=== PATIENT | male | born 1950 | race Caucasian/White ===

== ENCOUNTER → 2017-08-28 09:53 | Outpatient (CLI) | payer MEDICARE, BC, SELFPAY ==
--- NOTE | 2017-08-28 10:05 | XR_ITS ---
XR knee RT 4V HISTORY: ITS.REASON: RT KNEE PAIN AND STIFFNESS ORDERING PHYSICIAN: David Hubbard MD PATIENT AGE: 66 years COMPARISON: None FINDINGS: Moderate osteoarthritic changes involving the medial compartment and patellofemoral joint. No fracture or dislocation. No lytic or blastic change. There is a coarse area of calcification in the popliteal fossa. This could be related to dystrophic soft tissue calcification is somewhat more posterior than one would expect for a loose body unless it would be in a Cornelius's cyst. IMPRESSION: Moderate osteoarthritis of the medial compartment and patellofemoral joint. 2.3 cm coarse calcific density in the popliteal fossa posteriorly etiology indeterminate
== END ==
PROVIDERS: PCP Family Medicine; Visit Provider Family Medicine
DX: M25.661 Stiffness of right knee, not elsewhere classified (principal); M25.561 Pain in right knee
CPT/HCPCS: 73564

== ENCOUNTER → 2017-09-17 09:02 | Outpatient (CLI) | payer MEDICARE, BC, SELFPAY ==
--- NOTE | 2017-09-17 09:04 | MR_ITS ---
MR knee RT wo con HISTORY: Right-sided knee pain posteriorly extending into the calf with swelling ITS.REASON: RT medial meniscal tear ORDERING PHYSICIAN: Scott Han MD PATIENT AGE: 66 years Comparison: 08/28/2017 TECHNIQUE: Standard multiplanar multiecho sequences are performed without contrast. FINDINGS: The cruciate ligaments are intact. The fibers of the ACL are somewhat sparse but do appear intact and have normal orientation. The patellar tendon and quadriceps tendon and collateral ligaments have an unremarkable appearance. There is a longitudinal tear involving the anterior horn of the lateral meniscus. The posterior horn of the lateral meniscus appears intact. The medial meniscus has an abnormal appearance. The anterior horn is somewhat small and slightly displaced anteriorly and laterally. The body of the lateral meniscus is very small with increased horizontal T2 signal. The posterior horn has a somewhat truncated appearance anteriorly. Suspect that there is a complex tear involving the body and posterior horn with a flipped meniscus as there is some abnormal isointensity to the right of the inferior aspect of the posterior cruciate ligament. Increased T2 signal involves the proximal tibia posteriorly at the insertion of the posterior cruciate ligament as well as the anterior aspect of the proximal tibia in the subcortical region. Osteoarthritic changes are present involving all 3 compartments and there is a small knee joint effusion with a small Cornelius's cyst. There is an area of irregular mixed signal intensity in the popliteal fossa measuring 17 mm corresponding to the calcification noted on the plain film consistent with a loose body or synovial osteochondroma. A donor site is not identified. IMPRESSION: 1. Abnormal MRI of the right knee. Tricompartmental osteoarthritic changes are present with knee joint effusion and loose bodies/synovial osteochondroma in the popliteal fossa. 2. Longitudinal tear of the anterior horn of the lateral meniscus. 3. Complex tear involves the body of the medial meniscus with possible flipped meniscus. Prior meniscal surgery could also give this appearance. Please correlate clinically.
== END ==
PROVIDERS: PCP Family Medicine; Visit Provider Orthopaedic Surgery
DX: M17.11 Unilateral primary osteoarthritis, right knee (principal); M71.21 Synovial cyst of popliteal space [Baker], right knee; S83.241A Other tear of medial meniscus, current injury, right knee, initial encounter
CPT/HCPCS: 73721

== ENCOUNTER → 2017-11-07 06:39 | Outpatient (CLI) | payer MEDICARE, BC, SELFPAY ==
[2017-11-07 07:31] LABS: Hemoglobin A1C 7.5 % (0.0-7.0)
[2017-11-07 08:55] LABS: Alanine Aminotransferase 33 U/L (12-78); Albumin Level 3.9 gm/dL (3.4-5.0); Albumin/Globulin Ratio 1.1 (1.1-1.8); Alkaline Phosphatase 88 U/L (46-116); Anion Gap 11.3 mEq/L (5-15); Aspartate Amino Transferase 21 U/L (15-37); Bilirubin,Total 0.4 mg/dL (0.2-1.0); Blood Urea Nitrogen 10 mg/dL (7-18); Calcium 9.3 mg/dL (8.5-10.1); Carbon Dioxide 31 mmol/L (21.0-32.0); Chloride 107 mmol/L (98-107); Cholesterol 214 mg/dL (140-200); Creatinine,Serum 0.97 mg/dL (0.70-1.30); Estimated Glomerular Filt Rate 78 ml/min (>60); GFR (African American) 94 ML/MIN (>60); Globulin 3.4 gm/dl (1.3-3.2); Glucose 121 mg/dL (74-106); HDL Cholesterol 43 mg/dL (27-67); LDL Cholesterol 138 mg/dL (0-130); Potassium 4.3 mmoL/L (3.5-5.1); Sodium 145 mmol/L (136-145); Thyroid Stimulating Hormone 1.47 uIU/ml (0.358-3.740); Total Protein,Serum 7.3 gm/dL (6.4-8.2); Triglycerides 163 mg/dL (30-200); VLDL Cholesterol 33 mg/dL (0-40)
== END ==
PROVIDERS: PCP Family Medicine; Visit Provider Family Medicine
DX: E78.5 Hyperlipidemia, unspecified (principal); E03.9 Hypothyroidism, unspecified; E11.9 Type 2 diabetes mellitus without complications; I10 Essential (primary) hypertension
CPT/HCPCS: 36415; 80053; 80061; 83036; 84443

== ENCOUNTER → 2018-04-22 10:18 | Outpatient (POV) | payer MEDICARE, SELFPAY | PROVIDERS: Visit Provider Nurse Practitioner Acute Care | DX: Z00.00 Encounter for general adult medical examination without abnormal findings (principal) ==

== ENCOUNTER → 2018-04-23 13:46 | Outpatient (CLI) | payer MEDICARE, SELFPAY ==
[2018-04-23 14:14] LABS: Adenovirus F 40/41, stool Not Detected (NotDetected); Astrovirus Not Detected (NotDetected); Campylobacter Not Detected (NotDetected); Clostridium Difficile A/B, PCR Not Detected (NotDetected); Cryptosporidium Not Detected (NotDetected); Cyclospora Cayetanesis Not Detected (NotDetected); Entamoeba histolytica Not Detected (NotDetected); Enteroaggregative E coli Not Detected (NotDetected); Enteropathogenic E coli Not Detected (NotDetected); Enterotoxigenic E coli Not Detected (NotDetected); Giardia lamblia Not Detected (NotDetected); Norovirus Not Detected (NotDetected); Plesimonas Shigalloides, PCR Not Detected (NotDetected); Rotavirus A Not Detected (NotDetected); Salmonella, PCR Not Detected (NotDetected); Sapovirus Not Detected (NotDetected); Shiga-like toxin E coli Not Detected (NotDetected); Shigella Enterovasive E coli Not Detected (NotDetected); Vibrio Cholerae Not Detected (NotDetected); Vibrio, PCR Not Detected (NotDetected); Yersinia Entercolitica, PCR Not Detected (NotDetected)
== END ==
PROVIDERS: Visit Provider Nurse Practitioner Acute Care
DX: K30 Functional dyspepsia (principal); R19.7 Diarrhea, unspecified
CPT/HCPCS: 87506

== ENCOUNTER → 2018-12-06 15:42 | Outpatient (CLI) | payer MEDICARE, SELFPAY ==
[2018-12-06 16:03] LABS: Basophils % 0.7 % (0.1-2.0); Eosinophils # 0.2 K/mm3 (0.0-0.4); Eosinophils % 2.9 % (0.1-12.0); Hematocrit 40.6 % (42.0-52.0); Hemoglobin 13.4 g/dL (14.1-18.0); Lymphocytes # 1.6 K/mm3 (0.7-4.5); Lymphocytes % 28.7 % (10-50); Mean Corpuscular Hemoglobin 29.6 pg (27.0-31.2); Mean Corpuscular Volume 89.8 fl (80-94); Mean Platelet Volume 7.5 fl (7.4-10.4); Monocytes # 0.3 K/mm3 (0.1-1.0); Monocytes % 5.7 % (1.7-9.3); Neutrophils # 3.4 K/mm3 (1.8-7.8); Platelet Count 249 K/mm3 (142-424); Red Blood Count 4.52 M/mm3 (4.60-6.20); Red Cell Distribution Width 14.1 % (11.5-17.5); White Blood Count 5.4 K/mm3 (4.8-10.8)
[2018-12-06 17:40] LABS: Alanine Aminotransferase 27 U/L (12-78); Albumin Level 4.2 gm/dL (3.4-5.0); Albumin/Globulin Ratio 1.2 (1.1-1.8); Alkaline Phosphatase 74 U/L (46-116); Amylase 37 U/L (25-115); Aspartate Amino Transferase 28 U/L (15-37); Bilirubin,Total 0.5 mg/dL (0.2-1.0); Blood Urea Nitrogen 13 mg/dL (7-18); Carbon Dioxide 27 mmol/L (21.0-32.0); Chloride 102 mmol/L (98-107); Creatinine,Serum 0.85 mg/dL (0.70-1.30); Estimated Glomerular Filt Rate 90 ml/min (>60); Ferritin 26 ng/mL (8-388); GFR (African American) 109 ML/MIN (>60); Globulin 3.5 gm/dl (1.3-3.2); Glucose 87 mg/dL (74-106); Lipase 159 u/L (73-393); Sodium 141 mmol/L (136-145); Total Protein,Serum 7.7 gm/dL (6.4-8.2)
[2018-12-08 08:09] LABS: Iron 46 ug/dL (38-169); UIBC 357 ug/dL (111-343)
[2018-12-09 07:24] LABS: Iron Saturation 11 % (15-55)
== END ==
PROVIDERS: Visit Provider Internal Medicine Gastroenterology
DX: R19.7 Diarrhea, unspecified (principal); K30 Functional dyspepsia; R14.0 Abdominal distension (gaseous); R63.4 Abnormal weight loss; E74.31 Sucrase-isomaltase deficiency
CPT/HCPCS: 36415; 80053; 82150; 82728; 83540; 83550; 83690; 85025

== ENCOUNTER → 2018-12-10 09:56 | Outpatient (CLI) | payer MEDICARE, SELFPAY ==
--- NOTE | 2018-12-10 09:58 | CT_ITS ---
PROCEDURE: CT ABDOMEN PELVIS W CON CLINICAL INDICATION: DIARRHEA, WGT LOSS, BLOATING, DYSPEPSIA COMPARISON: No exams were available for comparison TECHNIQUE: IV Contrast: 75ML OPTIRAY 350 Oral Contrast 450ml Redicat Axial images obtained with sagittal and coronal reformats. All CT scans at the facility use one or more dose reduction, viz: automated exposure control, ma/kV adjustment per patient size (including targeted exams where dose is matched to indication, i.e. head), or iterative reconstruction technique. FINDINGS: There is COPD in the lung bases with pulmonary fibrotic changes. In the most superior image there is soft tissue density posterior to the left atrium which may be related to adenopathy. This is incompletely imaged and chest CT may provide further evaluation. The liver, spleen, adrenal glands, and pancreas have an unremarkable appearance. There is a large gallstone in the fundus of the gallbladder which measures 3 cm. The wall the stomach appears somewhat thickened. This could be due to nondistention or gastritis. No renal or ureteral calculi. There is a 2.4 cm left renal cyst. Prior appendectomy. No intestinal obstruction or free air. There is diverticulosis of the colon throughout from the cecum to the sigmoid colon region. There is no evidence of diverticulitis. There is mild thickening of the junction of the rectum and sigmoid colon. This could be due to nondistention. Sigmoidoscopy may confirm. The prostate is enlarged at 5.9 x 4.9 cm. There is mild thickening of the urinary bladder wall. There are postsurgical changes of lumbar spine with inter pedicular screws at L2 and L3 there are mild osteoarthritic changes of the hips with a lucency of the right femoral neck and may be due to subchondral cyst. IMPRESSION: 1. Cholelithiasis. 2. Thickening of the wall of the stomach. This is nonspecific and may be due to nondistention. Differential diagnosis would include infiltrative process such as diffuse inflammation or even neoplasm. Upper endoscopy may be of further value. 3. Thickening of the junction of the sigmoid colon and rectum which could also be due to nondistention versus focal mucosal thickening from inflammation or neoplasm. Sigmoidoscopy may be of further value in this patient with recent weight loss 4. Suspected mediastinal adenopathy. Chest CT may be of further value. 5. Pancolonic diverticulosis Dictated by: Mannie Belcher MD 12/11/2018 06:40 Electronically signed by Mannie Belcher MD in [place] 12/11/2018 06:40
== END ==
PROVIDERS: PCP Family Medicine; Visit Provider Internal Medicine Gastroenterology
DX: R19.7 Diarrhea, unspecified (principal); R63.4 Abnormal weight loss; R14.0 Abdominal distension (gaseous); K30 Functional dyspepsia; E74.31 Sucrase-isomaltase deficiency
CPT/HCPCS: 74177; Q9967

== ENCOUNTER → 2018-12-16 14:26 | Outpatient (CLI) | payer MEDICARE, SELFPAY ==
[2018-12-16 16:03] LABS: Blood Urea Nitrogen 10 mg/dL (7-18); Creatinine,Serum 0.86 mg/dL (0.70-1.30); Estimated Glomerular Filt Rate 89 ml/min (>60); GFR (African American) 108 ML/MIN (>60)
== END ==
PROVIDERS: Visit Provider Family Medicine
DX: Z01.818 Encounter for other preprocedural examination (principal)
CPT/HCPCS: 36415; 82565; 84520

== ENCOUNTER → 2018-12-18 13:41 | Outpatient (CLI) | payer MEDICARE, SELFPAY ==
--- NOTE | 2018-12-18 14:08 | CT_ITS ---
PROCEDURE: CT CHEST WO/W CON CLINCAL INDICATION: COPD,ABN CT SCAN COPD, shortness of air, mediastinal adenopathy COMPARISON: CT ABDOMEN PELVIS W CON from 12/10/2018 TECHNIQUE: IV Contrast: 75ml Optiray 350 Axial images obtained with sagittal and coronal reformats. All CT scans at the facility use one or more dose reduction, viz: automated exposure control, ma/kV adjustment per patient size (including targeted exams where dose is matched to indication, i.e. head), or iterative reconstruction technique. FINDINGS: HEART,AORTA,PULMONARY ARTERIES unenhanced images show coronary artery calcification. There is mild prominence of the ascending aorta at 4 cm. No evidence of aortic dissection or central pulmonary embolus. MEDIASTINAL AND HILAR STRUCTURES: There are multiple partially calcified mildly enlarged mediastinal lymph nodes. Calcified hilar nodes are also present. The abnormality noted on the CT abdomen represents enlarged lymph nodes partially calcified measuring 4 x 2.6 cm in the subcarinal region and right infrahilar area. LUNGS: There is hyperinflation with attenuation of the peripheral pulmonary vessels consistent with COPD. There are peripheral pulmonary fibrotic changes more extensive in the lung bases with some mild honeycombing. Scattered small subpleural nodular opacities are noted which are nonspecific. 5 mm subpleural opacity is present in the left apex. No central obstructing lesions. PLEURAL SPACES: No significant effusion. No evidence of pneumothorax. BONY STRUCTURES: Degenerative change thoracic spine LYMPH NODES: Mild mediastinal adenopathy. The nodes are partially calcified UPPER ABDOMEN: Cholelithiasis. There is a 2.9 cm stone within the gallbladder. There is high-grade stenosis involving the ostium of the celiac artery with poststenotic dilatation. The stenosis is approximately 90 percent ADDITIONAL FINDINGS: No other significant abnormalities. IMPRESSION: 1. Enlarged partially calcified mediastinal lymph nodes with calcified hilar lymph nodes and associated pulmonary fibrotic changes. Sarcoidosis would be included in the differential diagnosis. 2. Mild dilatation of the ascending aorta at 4 cm. 3. 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 Cholelithiasis Dictated by: Mannie Belcher MD 12/19/2018 05:10 Electronically signed by Mannie Belcher MD in [place] 12/19/2018 05:10
== END ==
PROVIDERS: PCP Family Medicine; Visit Provider Family Medicine
DX: R93.89 Abnormal findings on diagnostic imaging of other specified body structures (principal); J44.9 Chronic obstructive pulmonary disease, unspecified
CPT/HCPCS: 71270; 94060; 94640; 94726; 94729; Q9967

== ENCOUNTER → 2019-02-11 09:46 | Outpatient (CLI) | payer MEDICARE, SELFPAY ==
--- NOTE | 2019-02-11 09:50 | XR_ITS ---
PROCEDURE: XR RIBS LT MIN 3V W CXR1V CLINICAL INDICATION: LT RIB PAIN COMPARISON: CXR CHEST(2 VIEWS-NOT PORTABLE) from 01/20/2013 CT CHEST WO/W CON from 12/18/2018 FINDINGS: Bone density is normal. There is no pleural effusion or pneumothorax. There are multiple old healed left-sided rib fractures involving 7th, 8th, 9th, and 10th ribs. There is no acute fracture. There is a 3.1 centimeter ring type of calcification in the right upper quadrant of the abdomen. IMPRESSION: No acute rib fractures. Old healed left-sided rib fractures. Right upper quadrant calcification likely gallstone. Dictated by: Cristino James 02/11/2019 12:27 Electronically signed by Cristino James in [facility] 02/11/2019 12:27
== END ==
PROVIDERS: PCP Family Medicine; Visit Provider Family Medicine
DX: R07.81 Pleurodynia (principal)
CPT/HCPCS: 71101

== ENCOUNTER → 2019-11-08 07:06 | Outpatient (CLI) | payer MEDICARE, SELFPAY ==
[2019-11-08 10:30] LABS: Hemoglobin A1C 6.8 % (4.0-6.0)
[2019-11-08 14:07] LABS: Alanine Aminotransferase 23 U/L (12-78); Albumin Level 4.5 g/dl (3.5-5.0); Albumin/Globulin Ratio 1.5 (1.1-1.8); Alkaline Phosphatase 87 U/L (38-126); Anion Gap 11.6 mEq/L (5-15); Aspartate Amino Transferase 35 U/L (17-59); Bilirubin,Total 0.7 mg/dl (0.2-1.3); Blood Urea Nitrogen 13 mg/dl (9-20); Calcium 10.4 mg/dl (8.4-10.2); Carbon Dioxide 30 mmol/L (22.0-30.0); Chloride 107 mmol/L (98-107); Chol/HDL Ratio 2.9 (1-3.5); Cholesterol 136 mg/dl (140-200); Estimated Glomerular Filt Rate 97 ml/min (>60); GFR (African American) 117 ML/MIN (>60); Glucose 151 mg/dl (74-100); HDL Cholesterol 47 mg/dl (40-60); Potassium 4.6 mmoL/L (3.5-5.1); Sodium 144 mmol/L (136-145); Total Protein,Serum 7.5 g/dl (6.3-8.2); Triglycerides 135 mg/dl (30-150); VLDL Cholesterol 27 mg/dL (0-40)
[2019-11-08 14:18] LABS: Direct LDL Cholesterol 80.69 mg/dL (100-129)
[2019-11-08 14:25] LABS: T4 (Thyroxine) 15.1 ug/dl (5.53-11.0)
[2019-11-08 14:38] LABS: Prostate Specific Ag Screen 2.8 ng/ml (0.0-4.0); Thyroid Stimulating Hormone 0.15 uIU/mL (0.465-4.68)
== END ==
PROVIDERS: Visit Provider Family Medicine
DX: I10 Essential (primary) hypertension (principal); E78.5 Hyperlipidemia, unspecified; E03.9 Hypothyroidism, unspecified; E11.9 Type 2 diabetes mellitus without complications; Z79.84 Long term (current) use of oral hypoglycemic drugs; Z12.5 Encounter for screening for malignant neoplasm of prostate
CPT/HCPCS: 36415; 80053; 80061; 83036; 84436; 84443; G0103

== ENCOUNTER → 2020-01-08 10:55 | Outpatient (CLI) | payer MEDICARE, SELFPAY ==
--- NOTE | 2020-01-08 11:16 | MR_ITS ---
PROCEDURE: MR CERVICAL SPINE WO CON CLINICAL INDICATION: NECK PAIN WITH RT ARM RADICULOPATHY X2-3 WEEKS. COMPARISON: CR CS5 CERVICAL SPINE 4 OR 5 VIEWS from 01/10/2016 TECHNIQUE: Standard multiplanar multiecho sequences are performed without contrast. 3-D MIP and myelographic images are also rendered and reviewed FINDINGS: There is normal alignment. The craniocervical junction has an unremarkable appearance. There are hypertrophic changes at the deltoid process with some pannus formation about the odontoid process without cord impingement. C2-C3: Degenerative disc disease with mild right foraminal narrowing from uncovertebral hypertrophy. C3-C4: Degenerative disc disease with bulging disc a right paracentral disc osteophyte complex with severe right-sided facet and uncovertebral hypertrophy causing severe right foraminal narrowing. There is also right lateral recess narrowing and severe canal stenosis with impingement upon the cord with canal measuring 5 mm. There is some hypertrophy of the lamina also at this level contributing to the canal stenosis. There is moderate left-sided foraminal narrowing as well. C4-C5: Degenerative disc disease with bulging disc with moderate to severe right-sided foraminal narrowing from facet hypertrophy. Borderline canal stenosis. C5-C6: Degenerative disc disease. Bulging disc is present which is slightly eccentric toward the left. There is narrowing of the canal at 9 mm. C5 has a mottled appearance with heterogeneous T1 and T2 signal which may be degenerative in nature. There is severe bilateral foraminal narrowing from uncovertebral and facet hypertrophy. C6-C7: Degenerative disc disease with bulging disc along with ligamentum hypertrophy with bilateral foraminal narrowing right greater than left. C7-T1: Mild degenerative disc disease. Spondylosis is also present in the upper thoracic spine at T1-T2 and T3 with facet hypertrophic changes with bilateral foraminal narrowing. MRI of the T-spine with axial imaging may better evaluate. No extruded herniated disc is evident. Prominent anterior osteophytes are present at C4-C5 C6 and C7 consistent with DISH. IMPRESSION: Abnormal MRI of the cervical spine with multilevel cervical spondylosis with degenerative disc disease bulging disc and facet and uncovertebral hypertrophy resulting in canal stenosis lateral recess narrowing and foraminal narrowing. This is most severe at C3-C4 with other levels also affected. Please see above for detailed description at each level. Thoracic spondylosis also noted which may be better evaluated with thoracic spine MRI with axial imaging. DISH of the cervical spine. Dictated by: Mannie Belcher MD 01/09/2020 10:39 Mannie Belcher MD in [place] 01/09/2020 10:39
== END ==
PROVIDERS: PCP Family Medicine; Visit Provider Family Medicine
DX: M54.12 Radiculopathy, cervical region (principal)
CPT/HCPCS: 72141; 76376

== ENCOUNTER → 2020-02-16 07:47 | Outpatient (CLI) | payer MEDICARE, SELFPAY ==
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
[2020-02-16 08:25] LABS: Blood Urea Nitrogen 11 mg/dl (9-20); Estimated Glomerular Filt Rate 75 ml/min (>60); GFR (African American) 90 ML/MIN (>60)
== END ==
PROVIDERS: PCP Family Medicine; Visit Provider Specialist
DX: G40.909 Epilepsy, unspecified, not intractable, without status epilepticus (principal); R40.4 Transient alteration of awareness; R55 Syncope and collapse
CPT/HCPCS: 36415; 70553; 82565; 84520; 93270; A9576

== ENCOUNTER → 2020-03-23 14:14 | Outpatient (POV) | payer MEDICARE, SELFPAY | PROVIDERS: Visit Provider Dermatology | DX: Z00.00 Encounter for general adult medical examination without abnormal findings (principal) ==

== ENCOUNTER 2020-04-23 08:00 | Outpatient (RCR) | payer MEDICARE, SELFPAY | END 2020-04-23 08:05 | disposition home or self-care (01) | LOC: PT 08:00 | PROVIDERS: PCP Family Medicine; Visit Provider Anesthesiology Pain Medicine | DX: M50.11 Cervical disc disorder with radiculopathy, high cervical region (principal) | CPT/HCPCS: 20560; 97010; 97012; 97014; 97110; 97163; G0283 ==

== ENCOUNTER → 2020-06-01 13:18 | Outpatient (POV) | payer MEDICARE, SELFPAY ==
[2020-06-01 14:14] LABS: Basophils # 0.1 K/mm3 (0-0.2); Basophils % 0.8 % (0.1-2.0); Eosinophils # 0.2 K/mm3 (0.0-0.4); Eosinophils % 3.7 % (0.1-12.0); Hemoglobin 13.8 g/dL (14.1-18.0); Lymphocytes # 1.7 K/mm3 (0.7-4.5); Lymphocytes % 27.4 % (10-50); Mean Corpuscular HGB Conc 32.7 g/dL (31.8-35.4); Mean Corpuscular Hemoglobin 29.6 pg (27.0-31.2); Mean Corpuscular Volume 90.4 fl (80-94); Mean Platelet Volume 7.1 fl (7.4-10.4); Monocytes # 0.4 K/mm3 (0.1-1.0); Monocytes % 6.2 % (1.7-9.3); Neutrophils # 3.7 K/mm3 (1.8-7.8); Neutrophils % 61.9 % (37.0-80.0); Platelet Count 259 K/mm3 (142-424); Red Blood Count 4.65 M/mm3 (4.60-6.20); Red Cell Distribution Width 13.8 % (11.5-17.5); White Blood Count 6.1 K/mm3 (4.8-10.8)
[2020-06-01 14:42] LABS: Chloride 106 mmol/L (98-107); Potassium 3.9 mmoL/L (3.5-5.1); Sodium 143 mmol/L (136-145)
[2020-06-01 14:44] LABS: Alanine Aminotransferase 27 U/L (12-78); Aspartate Amino Transferase 35 U/L (17-59); Blood Urea Nitrogen 10 mg/dl (9-20); Estimated Glomerular Filt Rate 75 ml/min (>60); GFR (African American) 90 ML/MIN (>60)
[2020-06-01 14:45] LABS: Albumin Level 4.8 g/dl (3.5-5.0); Albumin/Globulin Ratio 1.8 (1.1-1.8); Alkaline Phosphatase 86 U/L (38-126); Anion Gap 14.9 mEq/L (5-15); Bilirubin,Total 0.5 mg/dl (0.2-1.3); Calcium 9.8 mg/dl (8.4-10.2); Carbon Dioxide 26 mmol/L (22.0-30.0); Globulin 2.7 g/dL (1.3-3.2); Glucose 134 mg/dl (74-100); Total Protein,Serum 7.5 g/dl (6.3-8.2)
[2020-06-03 14:24] LABS: Hep A Ab, IgM Negative (Negative); Hepatitis B Core Antibody IgM Negative (Negative); Hepatitis B Surface Antigen Negative (Negative)
[2020-06-04 06:17] LABS: Hepatitis C Antibody <0.1 s/co ratio (0.0-0.9)
[2020-06-07 13:40] LABS: QuantiFERON-TB Gold Plus Negative (Negative)
== END ==
PROVIDERS: Visit Provider Dermatology
DX: L40.0 Psoriasis vulgaris (principal); Z79.899 Other long term (current) drug therapy
CPT/HCPCS: 36415; 80053; 80074; 85025; 86480

== ENCOUNTER → 2020-06-24 07:22 | Outpatient (CLI) | payer MEDICARE, SELFPAY ==
[2020-06-24 08:51] LABS: Chloride 107 mmol/L (98-107); Potassium 4.2 mmoL/L (3.5-5.1); Sodium 143 mmol/L (136-145)
[2020-06-24 08:53] LABS: Alanine Aminotransferase 24 U/L (12-78); Blood Urea Nitrogen 11 mg/dl (9-20); Estimated Glomerular Filt Rate 84 ml/min (>60); GFR (African American) 102 ML/MIN (>60)
[2020-06-24 08:54] LABS: Albumin Level 4.5 g/dl (3.5-5.0); Albumin/Globulin Ratio 1.7 (1.1-1.8); Alkaline Phosphatase 76 U/L (38-126); Anion Gap 12.2 mEq/L (5-15); Aspartate Amino Transferase 33 U/L (17-59); Bilirubin,Total 0.6 mg/dl (0.2-1.3); Calcium 9.8 mg/dl (8.4-10.2); Carbon Dioxide 28 mmol/L (22.0-30.0); Chol/HDL Ratio 2.8 (1-3.5); Cholesterol 133 mg/dl (140-200); Globulin 2.7 g/dL (1.3-3.2); Glucose 116 mg/dl (74-100); HDL Cholesterol 47 mg/dl (40-60); Total Protein,Serum 7.2 g/dl (6.3-8.2); Triglycerides 88 mg/dl (30-150); VLDL Cholesterol 18 mg/dL (0-40)
[2020-06-24 09:05] LABS: Direct LDL Cholesterol 66.01 mg/dL (100-129)
[2020-06-24 09:12] LABS: T4 (Thyroxine) 13.6 ug/dl (5.53-11.0)
[2020-06-24 09:25] LABS: Thyroid Stimulating Hormone 0.45 uIU/mL (0.465-4.68)
[2020-06-24 09:26] LABS: Hemoglobin A1C 6.4 % (4.0-6.0)
== END ==
PROVIDERS: Visit Provider Family Medicine
DX: I10 Essential (primary) hypertension (principal); E78.5 Hyperlipidemia, unspecified; E03.9 Hypothyroidism, unspecified; E11.9 Type 2 diabetes mellitus without complications; G40.909 Epilepsy, unspecified, not intractable, without status epilepticus
CPT/HCPCS: 36415; 80053; 80061; 83036; 84436; 84443

== ENCOUNTER → 2020-07-27 08:56 | Outpatient (POV) | payer MEDICARE, SELFPAY | PROVIDERS: Visit Provider Dermatology | DX: Z00.00 Encounter for general adult medical examination without abnormal findings (principal) ==

== ENCOUNTER → 2020-10-12 10:06 | Outpatient (POV) | payer MEDICARE, SELFPAY | PROVIDERS: Visit Provider Dermatology | DX: Z00.00 Encounter for general adult medical examination without abnormal findings (principal) ==

== ENCOUNTER → 2020-12-02 09:12 | Outpatient (CLI) | payer MEDICARE, SELFPAY ==
--- NOTE | 2020-12-02 09:24 | CT_ITS ---
PROCEDURE: CT HIGH RESOLUTION CHEST CLINICAL HISTORY: PULMONARY FIBROSIS COMPARISON: CT CT CHEST WO/W CON from 12/18/2018 TECHNIQUE: Axial images obtained with sagittal and coronal reformats. All CT scans at the facility use one or more dose reduction, viz: automated exposure control, ma/kV adjustment per patient size (including targeted exams where dose is matched to indication, i.e. head), or iterative reconstruction technique. FINDINGS: Partially calcified lymph nodes are once again noted within the mediastinum and joão not significantly changed. Coronary artery calcifications are present. Normal heart size. COPD changes with peripheral areas interlobular septal thickening and honeycombing in the lung bases consistent with pulmonary fibrosis. The subpleural/peripheral interlobular septal thickening appears somewhat more prominent compared to the previous exam. The areas of honeycombing are not significant changed. No lobar consolidation or collapse. No suspicious pulmonary nodules apparent. There is a large gallstone present measuring 3 cm. Minimal punctate calcification noted in the head of the pancreas IMPRESSION: Mild progression of the pulmonary fibrosis with COPD changes. Calcified mediastinal and hilar lymph nodes once again noted. Dictated by: Mannie Belcher MD 12/20/2020 12:31 Mannie Belcher MD in [place] 12/20/2020 12:31
== END ==
PROVIDERS: PCP Family Medicine; Visit Provider Family Medicine
DX: J84.10 Pulmonary fibrosis, unspecified (principal)
CPT/HCPCS: 71250

== ENCOUNTER → 2020-12-25 07:45 | Outpatient (CLI) | payer MEDICARE, SELFPAY ==
[2020-12-25 09:41] LABS: Basophils # 0.1 K/mm3 (0-0.2); Basophils % 1.3 % (0.1-2.0); Eosinophils # 0.3 K/mm3 (0.0-0.4); Eosinophils % 5.2 % (0.1-12.0); Hematocrit 43.2 % (42.0-52.0); Hemoglobin 14.4 g/dL (14.1-18.0); Lymphocytes # 1.5 K/mm3 (0.7-4.5); Lymphocytes % 28.3 % (10-50); Mean Corpuscular HGB Conc 33.3 g/dL (31.8-35.4); Mean Corpuscular Hemoglobin 31.4 pg (27.0-31.2); Mean Corpuscular Volume 94.1 fl (80-94); Mean Platelet Volume 8.9 fl (7.4-10.4); Monocytes # 0.3 K/mm3 (0.1-1.0); Monocytes % 6.1 % (1.7-9.3); Neutrophils # 3.2 K/mm3 (1.8-7.8); Neutrophils % 59.1 % (37.0-80.0); Platelet Count 325 K/mm3 (142-424); Red Blood Count 4.59 M/mm3 (4.60-6.20); Red Cell Distribution Width 13.6 % (11.5-17.5); White Blood Count 5.4 K/mm3 (4.8-10.8)
[2020-12-25 10:58] LABS: Alanine Aminotransferase 17 U/L (12-78); Albumin Level 4.4 g/dl (3.5-5.0); Albumin/Globulin Ratio 1.5 (1.1-1.8); Alkaline Phosphatase 56 U/L (38-126); Anion Gap 12.1 mEq/L (5-15); Aspartate Amino Transferase 40 U/L (17-59); Bilirubin,Total 0.6 mg/dl (0.2-1.3); Blood Urea Nitrogen 11 mg/dl (9-20); Calcium 9.3 mg/dl (8.4-10.2); Carbon Dioxide 30 mmol/L (22.0-30.0); Chloride 101 mmol/L (98-107); Chol/HDL Ratio 2.3 (1-3.5); Cholesterol 117 mg/dl (140-200); Estimated Glomerular Filt Rate 96 ml/min (>60); GFR (African American) 116 ML/MIN (>60); Glucose 89 mg/dl (74-100); HDL Cholesterol 52 mg/dl (40-60); Potassium 4.1 mmoL/L (3.5-5.1); Sodium 139 mmol/L (136-145); Total Protein,Serum 7.4 g/dl (6.3-8.2); Triglycerides 68 mg/dl (30-150); VLDL Cholesterol 14 mg/dL (0-40)
[2020-12-25 11:09] LABS: Direct LDL Cholesterol 53.25 mg/dL (100-129)
[2020-12-25 11:15] LABS: T4 (Thyroxine) 10.4 ug/dl (5.53-11.0)
[2020-12-25 11:28] LABS: Thyroid Stimulating Hormone 4.46 uIU/mL (0.465-4.68)
[2020-12-25 12:37] LABS: Hemoglobin A1C 5.5 % (4.0-6.0)
== END ==
PROVIDERS: Visit Provider Family Medicine
DX: E11.9 Type 2 diabetes mellitus without complications (principal); E03.9 Hypothyroidism, unspecified; E78.5 Hyperlipidemia, unspecified
CPT/HCPCS: 36415; 80053; 80061; 83036; 84436; 84443; 85025

== ENCOUNTER → 2020-12-31 09:41 | Outpatient (CLI) | payer MEDICARE, SELFPAY ==
--- NOTE | 2020-12-31 11:00 | PC.NURSE ---
PFT and 6 Minute Walk Test completed on Pt without complications. Pt given Albuterol 0.083% via HHN, tolerated tx well.
== END ==
PROVIDERS: PCP Family Medicine; Visit Provider Internal Medicine Pulmonary Disease
DX: R06.02 Shortness of breath (principal)
CPT/HCPCS: 94060; 94618; 94726; 94729

== ENCOUNTER → 2021-02-22 12:39 | Outpatient (CLI) | payer MEDICARE, SELFPAY ==
[2021-02-22 13:45] VITALS: PULSE 73; PULSE 78
== END ==
PROVIDERS: PCP Family Medicine; Visit Provider Internal Medicine Pulmonary Disease
DX: R06.00 Dyspnea, unspecified (principal)
CPT/HCPCS: 94060; 94640; 94727; 94729

== ENCOUNTER → 2021-04-23 11:21 | Outpatient (CLI) | payer MEDICARE, SELFPAY ==
--- NOTE | 2021-04-23 11:47 | XR_ITS ---
PROCEDURE INFORMATION: Exam: XR Chest Exam date and time: 04/23/2021 11:47 AM Age: 70 years old Clinical indication: Shortness of breath TECHNIQUE: Imaging protocol: XR of the chest. Views: 1 view. COMPARISON: CT HIGH RESOLUTION CHEST 12/02/2020 9:26 AM FINDINGS: Lungs: Moderate reticular and hazy opacities in both lungs, compatible with chronic interstitial lung disease/fibrosis noted on CT 12/02/2020. No new focal consolidation. Pleural spaces: Unremarkable. No pleural effusion. No pneumothorax. Heart/Mediastinum: Heart size likely normal given AP projection. Bones/joints: Osteoarthritic changes. IMPRESSION: No definite active pulmonary process. Chronic appearing findings as above.
[2021-04-23 14:27] LABS: Basophils # 0.1 K/mm3 (0-0.2); Eosinophils # 0.2 K/mm3 (0.0-0.4); Eosinophils % 3.2 % (0.1-12.0); Hematocrit 41.2 % (42.0-52.0); Hemoglobin 13.6 g/dL (14.1-18.0); Lymphocytes # 1.2 K/mm3 (0.7-4.5); Lymphocytes % 17.7 % (10-50); Mean Corpuscular Hemoglobin 31.2 pg (27.0-31.2); Mean Corpuscular Volume 94.5 fl (80-94); Monocytes # 0.5 K/mm3 (0.1-1.0); Monocytes % 7.7 % (1.7-9.3); Neutrophils # 4.8 K/mm3 (1.8-7.8); Neutrophils % 70.4 % (37.0-80.0); Platelet Count 332 K/mm3 (142-424); Red Blood Count 4.36 M/mm3 (4.60-6.20); Red Cell Distribution Width 13.3 % (11.5-17.5); White Blood Count 6.8 K/mm3 (4.8-10.8)
== END ==
PROVIDERS: PCP Family Medicine; Visit Provider Family Medicine
DX: Z20.822 Contact with and (suspected) exposure to COVID-19 (principal)
CPT/HCPCS: 71045; 85025; C9803; U0003; U0005

== ENCOUNTER → 2021-04-25 08:03 | Outpatient (CLI) | payer MEDICARE, SELFPAY ==
--- NOTE | 2021-04-25 08:27 | FL_ITS ---
FINAL REPORT CLINICAL HISTORY: .PT STATES HE HAD HIS ESOPHAGUS STRETCHED JAN 2021, PT STATES HE FEELS LIKE FOOD STILL GETS STUCK. FLUORO TIME 51 SECONDS FINDINGS: ESOPHAGRAM HISTORY: Dysphagia. Previous esophageal stretching PROCEDURE: The patient ingested barium. Effervescent crystals were also administered. Spot and overhead films were obtained. FINDINGS: The esophagus is normal. There is no hiatal hernia. There is Rachid gastroesophageal reflux to the level of the upper thoracic esophagus. Peristalsis is normal. A 13 mm barium tablet was administered which passed throughout the esophagus. IMPRESSION: Marked gastroesophageal reflux. Reviewed, Interpreted and Dictated by Brian Melgoza III, MD Transcribed by MARTA Powell Authenticated by Brian Melgoza III, MD on 04/25/2021 12:02:15 PM [facility]
== END ==
PROVIDERS: PCP Family Medicine; Visit Provider Internal Medicine
DX: K21.9 Gastro-esophageal reflux disease without esophagitis (principal)
CPT/HCPCS: 74220

== ENCOUNTER → 2021-06-21 07:06 | Outpatient (CLI) | payer MEDICARE, SELFPAY ==
--- NOTE | 2021-06-21 07:09 | CT_ITS ---
FINAL REPORT TECHNIQUE: Thin section axial CT images of the facial bones and sinuses were obtained without contrast. Coronal reformatted images were also obtained. This study was performed with techniques to keep radiation doses as low as reasonably achievable, (ALARA). Individualized dose reduction techniques using automated exposure control or adjustment of mA and/or kV according to the patient's size were employed. CLINICAL HISTORY: hx sinusitis, thick mucous FINDINGS: CT SINUSES There is moderate mucosal thickening in the maxillary sinuses, the ethmoid air cells, in the sphenoid sinuses. There are small fluid levels in both maxillary sinuses which is consistent with acute sinusitis. Soft tissue obstructs the bilateral maxillary sinus ostia and infundibula. The left inferior turbinate is very small which may be due to postoperative change. The frontal sinuses are hypoplastic. There are postoperative changes in the roof of the mouth/maxilla. The nasal septum is in the midline. No fracture or acute bony abnormality is identified. IMPRESSION: Sinusitis as described. Soft tissue obstructs the bilateral maxillary sinus ostia and infundibula. Reviewed, Interpreted and Dictated by Brian Melgoza III, MD Transcribed by Jacqueline Anaya Authenticated by Brian Melgoza III, MD on 06/21/2021 08:42:23 AM [facility]
== END ==
PROVIDERS: PCP Family Medicine; Visit Provider Otolaryngology
DX: J32.9 Chronic sinusitis, unspecified (principal); J34.89 Other specified disorders of nose and nasal sinuses
CPT/HCPCS: 70486

== ENCOUNTER → 2021-08-17 06:32 | Outpatient (CLI) | payer MEDICARE, SELFPAY ==
[2021-08-17 09:12] LABS: Hemoglobin A1C 5.7 % (4.0-6.0)
[2021-08-17 09:34] LABS: Alanine Aminotransferase 18 U/L (12-78); Albumin Level 4.4 g/dl (3.5-5.0); Albumin/Globulin Ratio 1.3 (1.1-1.8); Alkaline Phosphatase 73 U/L (38-126); Anion Gap 12.4 mEq/L (5-15); Aspartate Amino Transferase 33 U/L (17-59); Bilirubin,Total 0.5 mg/dl (0.2-1.3); Blood Urea Nitrogen 7 mg/dl (9-20); Calcium 10.1 mg/dl (8.4-10.2); Carbon Dioxide 31 mmol/L (22.0-30.0); Chloride 101 mmol/L (98-107); Chol/HDL Ratio 2.4 (1-3.5); Cholesterol 120 mg/dl (140-200); Creatine Kinase 167 U/L (55-170); Estimated Glomerular Filt Rate 84 ml/min (>60); GFR (African American) 102 ML/MIN (>60); Globulin 3.5 g/dL (1.3-3.2); Glucose 109 mg/dl (74-100); HDL Cholesterol 49 mg/dl (40-60); Potassium 4.4 mmoL/L (3.5-5.1); Sodium 140 mmol/L (136-145); Total Protein,Serum 7.9 g/dl (6.3-8.2); Triglycerides 92 mg/dl (30-150); VLDL Cholesterol 18 mg/dL (0-40)
[2021-08-17 09:45] LABS: C-Reactive Protein 0.5 mg/L (0-4); Direct LDL Cholesterol 50.49 mg/dL (100-129)
[2021-08-17 11:04] LABS: Thyroid Stimulating Hormone 1.59 uIU/mL (0.465-4.68)
== END ==
PROVIDERS: PCP Family Medicine; Visit Provider Family Medicine
DX: E03.9 Hypothyroidism, unspecified (principal); E11.9 Type 2 diabetes mellitus without complications; I10 Essential (primary) hypertension; E78.5 Hyperlipidemia, unspecified; Z12.5 Encounter for screening for malignant neoplasm of prostate; Z79.84 Long term (current) use of oral hypoglycemic drugs
CPT/HCPCS: 36415; 80053; 80061; 82550; 83036; 84443; 86140; G0103

== ENCOUNTER → 2021-08-31 08:00 | Outpatient (CLI) | payer MEDICARE, SELFPAY ==
--- NOTE | 2021-08-31 08:04 | XR_ITS ---
FINAL REPORT CLINICAL HISTORY: knee pain FINDINGS: RIGHT KNEE Four weight-bearing views of the right knee were obtained. There is no acute fracture or dislocation. There is marked medial compartment joint space narrowing. There is subchondral sclerosis. Soft tissues are unremarkable. IMPRESSION: Subchondral sclerosis. Medial compartment joint space narrowing. Reviewed, Interpreted and Dictated by Juan Alberto Foster MD Transcribed by Jacqueline Anaya Authenticated and [facility]
--- NOTE | 2021-08-31 08:04 | XR_ITS ---
FINAL REPORT CLINICAL HISTORY: knee pain FINDINGS: LEFT KNEE Four weight-bearing views of the left knee were obtained. There is no acute fracture or dislocation. There is moderate medial compartment joint space narrowing. There is subchondral sclerosis. There are osteophytes along the underside of the patella. Soft tissues are unremarkable. IMPRESSION: Subchondral sclerosis. Medial compartment joint space narrowing. Reviewed, Interpreted and Dictated by Juan Alberto Foster MD Transcribed by Jacqueline Anaya Authenticated and [facility]
== END ==
PROVIDERS: PCP Family Medicine; Visit Provider Orthopaedic Surgery
DX: M25.561 Pain in right knee (principal); M25.562 Pain in left knee
CPT/HCPCS: 73564

== ENCOUNTER → 2021-09-17 08:03 | Outpatient (CLI) | payer MEDICARE, SELFPAY ==
[2021-09-17 08:13] LABS: MANUAL DIFFERENTIAL MANUAL DIFFERENTIAL (MANUAL DIFF)
--- NOTE | 2021-09-17 08:25 | ECG_ITS ---
APPROVED REPORT Exam: Resting ECG HR:59 bpm ECG Measurements Heart Rate 59 AXES RI 269 P 57 QRSd 122 QRS 26 QT 412 T 67 QTc 410 Conclusion SINUS BRADYCARDIA WITH FIRST DEGREE AV BLOCK POSSIBLE RIGHT VENTRICULAR CONDUCTION DELAY [RSR (QR) IN V1/V2] ABNORMAL ECG UNCONFIRMED REPORT Electronically signed by : Eugenio Aguirre MD 09/18/2021 08:02:59
[2021-09-17 11:03] LABS: Basophils % 0.6 % (0.1-2.0); Eosinophils # 0.2 K/mm3 (0.0-0.4); Eosinophils % 3.3 % (0.1-12.0); Hematocrit 39.1 % (42.0-52.0); Hemoglobin 13.5 g/dL (14.1-18.0); Lymphocytes # 1.5 K/mm3 (0.7-4.5); Lymphocytes % 22.4 % (10-50); Mean Corpuscular HGB Conc 34.5 g/dL (31.8-35.4); Mean Corpuscular Hemoglobin 30.8 pg (27.0-31.2); Mean Corpuscular Volume 89.3 fl (80-94); Mean Platelet Volume 7.6 fl (7.4-10.4); Monocytes # 0.5 K/mm3 (0.1-1.0); Monocytes % 7.9 % (1.7-9.3); Neutrophils # 4.3 K/mm3 (1.8-7.8); Neutrophils % 65.8 % (37.0-80.0); Platelet Count 307 K/mm3 (142-424); Red Blood Count 4.38 M/mm3 (4.60-6.20); Red Cell Distribution Width 13.2 % (11.5-17.5); White Blood Count 6.5 K/mm3 (4.8-10.8)
[2021-09-17 11:20] LABS: Alanine Aminotransferase 24 U/L (12-78); Albumin Level 4.3 g/dl (3.5-5.0); Albumin/Globulin Ratio 1.3 (1.1-1.8); Alkaline Phosphatase 73 U/L (38-126); Anion Gap 10.4 mEq/L (5-15); Aspartate Amino Transferase 45 U/L (17-59); Bilirubin,Total 0.4 mg/dl (0.2-1.3); Blood Urea Nitrogen 11 mg/dl (9-20); Calcium 9.8 mg/dl (8.4-10.2); Carbon Dioxide 31 mmol/L (22.0-30.0); Chloride 100 mmol/L (98-107); Estimated Glomerular Filt Rate 84 ml/min (>60); GFR (African American) 102 ML/MIN (>60); Globulin 3.2 g/dL (1.3-3.2); Glucose 81 mg/dl (74-100); Potassium 4.4 mmoL/L (3.5-5.1); Sodium 137 mmol/L (136-145); Total Protein,Serum 7.5 g/dl (6.3-8.2)
[2021-09-17 11:50] LABS: Eosinophils % 6 % (0-3); Lymphocytes % 31 % (10-50); Monocytes % 7 % (2-9); Neutrophils % 55 % (42-76); Platelet Estimate Normal; RBC Morphology Normal; Total Cells Counted 100
== END ==
PROVIDERS: PCP Family Medicine; Visit Provider Otolaryngology
DX: J32.0 Chronic maxillary sinusitis (principal); J32.2 Chronic ethmoidal sinusitis; Z01.812 Encounter for preprocedural laboratory examination; Z20.822 Contact with and (suspected) exposure to COVID-19
CPT/HCPCS: 36415; 80053; 85007; 85014; 85018; 85048; 85049; 93005; C9803; U0003; U0005

== ENCOUNTER 2021-09-20 09:07 | Day surgery (SDC) | payer MEDICARE, SELFPAY ==
[2021-09-16 09:52] VITALS: BMI 27.8
[2021-09-20] VITALS (11 sets, daily range): BP systolic 117–172; BP diastolic 52–91; PULSE 57–89; RESP 10–18; TEMP 36.1–43; O2SAT 95–98
[2021-09-20 09:51] LABS: POC Glucose,Bedside 92 (70-110)
--- NOTE | 2021-09-20 12:28 | HMH.ANESCL ---
[facility] Anesthesia Checklist - Patient Identification Patient Identification: Arm Band - Structural Data Admitted From: Home Planned Operative Procedure/s: FESS Consent for Planned Operative Procedure(s) Verified: Yes - NPO Status Verified Time NPO: 00:00 - Additional verifications Anesthesia Reactions: Yes (ponv, drowsiness) Hx Blood Transfusions: No Blood Transfusion Reaction: No - Airway Assessment C-Spine Mobility Assessed: Yes TMJ Mobility Assessed: Yes Dentition: Partials (Implants.) - Neurological Assessment Level of Consciousness: Awake Hx Seizures: Yes (2 years ago. On Keppra. Last dose yesterday) Numbness or tingling in extremities: No - Anesthesia Plan Anesthesia Risk discussed: Yes Anesthesia Plan: Verified ASA Class: III Anesthesia Type: General [facility] History I have reviewed the patient's past medical history: Yes Medical History: Reports:: Anxiety, Chronic Obstructive Pulmonary Disease (COPD), Depression, Diabetes Mellitus Type 1, Diabetes Mellitus Type 2, Hyperlipidemia, Hypertension, Lung Disease, Migraine, Seizures Denies:: Cancer, MRSA *Have you ever received a pneumonia vaccine?: No *Have you received a flu vaccine this season?: No Other Medical History: Reports: Arthritis, Hypothyroidism, Sinus Problems. Denies: Blood Transfusion Reaction Anesthesia experience/problems:: PONV Laterality Cases: Bilateral: Arthroscopy Knee, Arthroscopy Shoulder Other Surgeries: Yes: Appendectomy, Pacemaker, Other (back sx) Amputation: No Fractures: No - *Social History Last grade of school completed: Advanced degree Smoking Status: Never smoker Alcohol Intake: never Alcohol Intake Frequency:: other Substance Use Type: denies use *Occupational Status:: retired Housing: house Household Members: spouse *Travel in the last 8 weeks: None - Psychiatric History Pschychiatric History:: Reports:: Anxiety, Depression Family Hx:: Cancer, Diabetes
--- NOTE | 2021-09-20 14:21 | HMH.OPNOTE ---
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 Using a 0 degree sinus endoscope the right middle meatus is visualized and the middle turbinate medialized. Uncinectomy was then performed with a pediatric backbiter and microdebrider clearing the nasofrontal tract and infundibulum. The natural ostium to the maxillary sinus was then enlarged and cleared of obstructing polyp disease and connected to the posterior accessory ostium until the maxillary sinus was well aerated. Complete ethmoidectomy was performed working through the ethmoid bulla to clear disease polypoid mucosa in the anterior and posterior ethmoid while sparing normal mucosa at the margins. Resorbable packing was then placed in the right middle meatus. Attention was then drawn to the left side. In a similar fashion the middle turbinate was medialized, uncinectomy performed, nasofrontal tract cleared, infundibulum opened, and the natural ostium to the maxillary sinus was enlarged and cleared of obstructing polyp disease and connected to an accessory ostium posteriorly. Again, anterior and posterior ethmoidectomy was performed working to the ethmoid bulla to clear disease polypoid mucosa in the anterior and posterior ethmoid was very normal mucosa at the margins. Resorbable packing was again placed in the left middle meatus and the procedure concluded. All counts correct. Blood loss less than 25 mL. Patient was sent to recovery in stable condition. Condition: stable Disposition: PACU Complications:: none
--- NOTE | 2021-09-20 14:26 | P.PN_ITS ---
[facility] Anesthesia Record Part I Intake, IV Amount: 900 Estimated blood loss (mL): 5 Urine output (mL): 0 Blood Pressure: 128/75 SaO2: 95 Pulse Rate: 87 Respiratory Rate: 10 Temperature: 97.2 F Patient is:: Drowsy, Oral/Nasal airway Stable to PACU at:: 14:23
--- NOTE | 2021-09-20 14:58 | SUR.PHASEI ---
1458- detailed report called to maciel mosher in post op, 1459- pt left in stable condition with maciel mosher in post op.
--- NOTE | 2021-09-21 09:37 | HMH.ANESII ---
[facility] Anesthesia Record Part II Discharge Time: 14:53 Destination: Surgical Day Care (OP Surgery) PACU nurse assessment reviewed?: Yes Patient Condition:: Good Anesthesia Complications:: None Swallowing reflex intact?: Yes Cyanosis?: No Blood Pressure: 121/54 Pulse Rate: 79 Temperature: 97 F Mental Status: Alert & Oriented Pain level:: 0 Nausea and/or vomitting:: None Intake, IV Amount: 0
[2021-09-21 09:38] VITALS: BP 121/54; PULSE 79; TEMP 36.1
== END 2021-09-20 15:36 | disposition home or self-care (01) ==
LOC: OR 09:08
PROVIDERS: PCP Family Medicine; Visit Provider Otolaryngology
DX: J32.9 Chronic sinusitis, unspecified (principal); E11.9 Type 2 diabetes mellitus without complications; J44.9 Chronic obstructive pulmonary disease, unspecified; I10 Essential (primary) hypertension; Z79.899 Other long term (current) drug therapy
CPT/HCPCS: 31255; 31267; 82962; 88305; 96374; J2405

== ENCOUNTER → 2022-02-16 11:28 | Outpatient (CLI) | payer MEDICARE, SELFPAY ==
[2022-02-16 12:01] LABS: Influenza A, PCR Not Detected (NotDetected); Influenza B, PCR Not Detected (NotDetected)
[2022-02-16 12:24] LABS: Coronavirus 19, PCR Detected (NotDetected)
== END ==
PROVIDERS: PCP Family Medicine; Visit Provider Physician Assistant
DX: U07.1 COVID-19 (principal)
CPT/HCPCS: C9803; U0003; U0005

== ENCOUNTER → 2022-03-17 07:59 | Outpatient (CLI) | payer MEDICARE, SELFPAY ==
[2022-03-20 07:19] LABS: QuantiFERON-TB Gold Plus Negative (Negative)
== END ==
PROVIDERS: PCP Family Medicine; Visit Provider Dermatology
DX: L40.8 Other psoriasis (principal)
CPT/HCPCS: 36415; 86480

== ENCOUNTER → 2022-05-19 08:41 | Outpatient (CLI) | payer MEDICARE, SELFPAY ==
[2022-05-19 10:01] LABS: Hemoglobin A1C 5.7 % (4.0-6.0)
[2022-05-19 10:07] LABS: Alanine Aminotransferase 19 U/L (12-78); Albumin Level 4.4 g/dl (3.5-5.0); Albumin/Globulin Ratio 1.5 (1.1-1.8); Alkaline Phosphatase 69 U/L (38-126); Anion Gap 11.7 mEq/L (5-15); Aspartate Amino Transferase 29 U/L (17-59); Bilirubin,Total 0.5 mg/dl (0.2-1.3); Blood Urea Nitrogen 13 mg/dl (9-20); Calcium 9.3 mg/dl (8.4-10.2); Carbon Dioxide 30 mmol/L (22.0-30.0); Chloride 101 mmol/L (98-107); Cholesterol 132 mg/dl (140-200); Estimated Glomerular Filt Rate 74 ml/min (>60); GFR (African American) 90 ML/MIN (>60); Globulin 2.9 g/dL (1.3-3.2); Glucose 99 mg/dl (74-100); HDL Cholesterol 44 mg/dl (40-60); Potassium 3.7 mmoL/L (3.5-5.1); Sodium 139 mmol/L (136-145); Total Protein,Serum 7.3 g/dl (6.3-8.2); Triglycerides 114 mg/dl (30-150); VLDL Cholesterol 23 mg/dL (0-40)
[2022-05-19 10:18] LABS: Direct LDL Cholesterol 69.75 mg/dL (100-129)
[2022-05-19 10:37] LABS: Thyroid Stimulating Hormone 3.92 uIU/mL (0.465-4.68)
== END ==
PROVIDERS: PCP Family Medicine; Visit Provider Family Medicine
DX: E11.9 Type 2 diabetes mellitus without complications (principal); E03.9 Hypothyroidism, unspecified; E78.5 Hyperlipidemia, unspecified; Z79.84 Long term (current) use of oral hypoglycemic drugs
CPT/HCPCS: 36415; 80053; 80061; 83036; 84443

== ENCOUNTER → 2022-08-21 09:31 | Outpatient (CLI) | payer MEDICARE, SELFPAY ==
[2022-08-21 10:11] LABS: Basophils % 0.6 % (0.1-2.0); Eosinophils # 0.3 K/mm3 (0.0-0.4); Eosinophils % 3.8 % (0.1-12.0); Hematocrit 42.4 % (42.0-52.0); Hemoglobin 14.4 g/dL (14.1-18.0); Lymphocytes # 1.1 K/mm3 (0.7-4.5); Lymphocytes % 16.8 % (10-50); Mean Corpuscular HGB Conc 33.9 g/dL (31.8-35.4); Mean Corpuscular Hemoglobin 30.3 pg (27.0-31.2); Mean Corpuscular Volume 89.5 fl (80-94); Mean Platelet Volume 7.2 fl (7.4-10.4); Monocytes # 0.4 K/mm3 (0.1-1.0); Monocytes % 6.2 % (1.7-9.3); Neutrophils # 4.9 K/mm3 (1.8-7.8); Neutrophils % 72.7 % (37.0-80.0); Platelet Count 238 K/mm3 (142-424); Red Blood Count 4.74 M/mm3 (4.60-6.20); Red Cell Distribution Width 13.7 % (11.5-17.5); White Blood Count 6.8 K/mm3 (4.8-10.8)
[2022-08-21 10:35] LABS: Iron 91 ug/dL (49-181)
[2022-08-21 10:44] LABS: Total Iron Binding Capacity 403 ug/dL (261-462)
[2022-08-21 11:12] LABS: Ferritin 45.9 ng/ml (17.9-464)
[2022-08-21 11:43] LABS: Vitamin B12 736 pg/mL (239-931)
[2022-08-21 12:03] LABS: Folate > 20.00 ng/mL
== END ==
PROVIDERS: PCP Family Medicine; Visit Provider Nurse Practitioner Family
DX: D64.9 Anemia, unspecified (principal); R41.3 Other amnesia; R53.83 Other fatigue; R68.89 Other general symptoms and signs; M25.561 Pain in right knee; M25.562 Pain in left knee
CPT/HCPCS: 82607; 82728; 82746; 83540; 83550; 85025

== ENCOUNTER → 2022-12-15 08:14 | Outpatient (CLI) | payer MEDICARE, SELFPAY ==
[2022-12-15 09:47] LABS: Chloride 108 mmol/L (98-107); Sodium 142 mmol/L (136-145)
[2022-12-15 09:48] LABS: Potassium 3.6 mmoL/L (3.5-5.1)
[2022-12-15 09:50] LABS: Alanine Aminotransferase 22 U/L (12-78); Albumin Level 4.1 g/dl (3.5-5.0); Albumin/Globulin Ratio 1.4 (1.1-1.8); Alkaline Phosphatase 79 U/L (38-126); Anion Gap 9.6 mEq/L (5-15); Aspartate Amino Transferase 30 U/L (17-59); Bilirubin,Total 0.6 mg/dl (0.2-1.3); Blood Urea Nitrogen 9 mg/dl (9-20); Carbon Dioxide 28 mmol/L (22.0-30.0); Cholesterol 146 mg/dl (140-200); Estimated Glomerular Filt Rate 111 ml/min (>60); GFR (African American) 135 ML/MIN (>60); Globulin 2.9 g/dL (1.3-3.2); Triglycerides 79 mg/dl (30-150); VLDL Cholesterol 16 mg/dL (0-40)
[2022-12-15 09:51] LABS: Calcium 9.1 mg/dl (8.4-10.2); Chol/HDL Ratio 2.8 (1-3.5); Glucose 92 mg/dl (74-100); HDL Cholesterol 52 mg/dl (40-60)
[2022-12-15 12:04] LABS: Hemoglobin A1C 5.5 % (4.0-6.0)
== END ==
PROVIDERS: PCP Family Medicine; Visit Provider Family Medicine
DX: E11.9 Type 2 diabetes mellitus without complications (principal); E78.5 Hyperlipidemia, unspecified; I10 Essential (primary) hypertension; Z79.84 Long term (current) use of oral hypoglycemic drugs
CPT/HCPCS: 36415; 80053; 80061; 83036

== ENCOUNTER → 2022-12-23 08:20 | Outpatient (CLI) | payer MEDICARE, SELFPAY | PROVIDERS: PCP Family Medicine; Visit Provider Dermatology | DX: L40.0 Psoriasis vulgaris (principal) ==

== ENCOUNTER → 2022-12-25 09:51 | Outpatient (CLI) | payer MEDICARE, SELFPAY ==
[2022-12-25 10:17] LABS: Basophils % 0.4 % (0.1-2.0); Eosinophils # 0.2 K/mm3 (0.0-0.4); Eosinophils % 2.7 % (0.1-12.0); Hematocrit 43.2 % (42.0-52.0); Lymphocytes # 1.2 K/mm3 (0.7-4.5); Lymphocytes % 15.8 % (10-50); Mean Corpuscular HGB Conc 34.7 g/dL (31.8-35.4); Mean Corpuscular Hemoglobin 32.6 pg (27.0-31.2); Mean Corpuscular Volume 93.8 fl (80-94); Mean Platelet Volume 6.4 fl (7.4-10.4); Monocytes # 0.4 K/mm3 (0.1-1.0); Monocytes % 5.9 % (1.7-9.3); Neutrophils # 5.6 K/mm3 (1.8-7.8); Neutrophils % 75.2 % (37.0-80.0); Platelet Count 177 K/mm3 (142-424); Red Blood Count 4.61 M/mm3 (4.60-6.20); Red Cell Distribution Width 13.6 % (11.5-17.5); White Blood Count 7.4 K/mm3 (4.8-10.8)
[2022-12-28 11:12] LABS: QuantiFERON-TB Gold Plus Negative (Negative)
== END ==
PROVIDERS: PCP Family Medicine; Visit Provider Dermatology
DX: L40.0 Psoriasis vulgaris (principal); Z79.899 Other long term (current) drug therapy
CPT/HCPCS: 36415; 85025; 86480

== ENCOUNTER 2023-03-28 09:14 | Outpatient (CLI) | payer MEDICARE, SELFPAY | END 2023-03-28 23:59 | PROVIDERS: PCP Family Medicine; Visit Provider Nurse Practitioner Family | DX: D64.9 Anemia, unspecified (principal); E83.10 Disorder of iron metabolism, unspecified | CPT/HCPCS: 36415; 82728 ==

== ENCOUNTER 2023-05-02 10:36 | Outpatient (CLI) | payer MEDICARE, SELFPAY ==
--- NOTE | 2023-05-02 10:37 | FL_ITS ---
FINAL REPORT CLINICAL HISTORY: .modified barium swallow to assess swallowing 2.41 fluoro time 203.70 dap FINDINGS: MODIFIED BARIUM SWALLOW History: Dysphagia. FINDINGS: Fluoroscopy was provided for the speech pathologist to evaluate the swallowing mechanism. The patient was given several different consistencies of barium while the swallow was visualized fluoroscopically. The report of the speech pathologist should be consulted prior to making dietary decisions. Fluoro time: 2 minutes 41 seconds DAP: 203.70 uGy.m2 IMPRESSION: Modified barium swallow under fluoroscopic guidance. Please see the report of the speech pathologist for more detail. Films reviewed , interpreted and dictated by Dr. Melgoza. Transcribed by Manuel Santillan PA-C. Reviewed, Interpreted and Dictated by Brian Melgoza III, MD Transcribed by MARTA White Authenticated and . [facility]
[2023-05-02] MEDS: BARIUM SULFATE(LIQUID E-Z-PAQUE);355ML BOTTLE 355 ML PO (11:26)
--- NOTE | 2023-05-02 14:45 | HMH.SLMBS2 ---
Speech & Language Evaluation Speech/Language Mod Barium Swallow Start: 05/02/23 14:07 Freq: once Status: Complete Protocol: Document 05/02/23 14:08 GERDAMICHELLE (Rec: 05/02/23 14:45 [facility] [id number]) General Information General Current Food Consistancy Regular,Thin Liquids Dentition Upper & Lower Dentures Oxygen Status Room Air Patient Orientation Person,Place,Time,Situation Ability to Follow Directions Excellent Communication Ability No Impairment MBS Recommendations Diet Dietary Recommendations Regular,Mechanical Soft,Ground Meats,Chopped Meats,Thin Liquids Comment Provided multiple options for diet & gave education on pros/ cons Treatment/Strategies Treatment Recommendation Compens. Strategy Educat. Strategy/Precaution Recommend Sitting Upright (90 deg),Chin Tuck,Double Swallow,No Straw, Small Bites and Sips,Alternate Liquids/Solids Mod Barium Swallow Impressions Summary and Impressions Oral Phase Impression Moderate Impairment Oral Phase Summary Moderate impairment of the oral preparatory and oral transit phases of the swallow 2' observed fatigue following consecutive bites of solid bolus trials. Pt presents with decreased lingual movement, scattered loss with premature spillage, oral residuals, and multiple swallows following 2- 3 bites of bolus. Pt states he is a slow eater and frequently the last one to finish when he and his family go to restaurants. [employer] discussed diet recommendation options and stated mechanical soft foods are easier to manipulate, especially with extra sauces and gravys making this a safer diet route compared to regular solids. Pt expressed understanding. Pharyngeal Phase Impression Severe Impairment Pharyngeal Phase Summary Moderate to severe impairment of the pharyngeal phase of the swallow. Mr. Goldstein presents with A/P spills, premature spillage, limited BOT retraction, wilmer residuals in the vallecular space, noted penetration and aspiration of liquids, decreased hyolaryngeal excursion and laryngeal elevation of the swallow. Pt reports history of GERD, but no retrodgrade flow of bolus was observed throughout the MBSS. Pt was able to tolerate smaller presentations of bolus when compared to larger adminstrations. He was observed to silently aspiration wilmer residuals of thin liquids following consecutive large sips of thin liquids following presentation of barium tablet 2' poor epiglottic coverage. Pt also exhibited wilmer penetration and trace aspiration of thin liquids when presented with a straw. This was independently cleared with throat clear and a cough . Pt was observed to have fatigue following mastication of multiple solid bolus trials which resulted in decreased BOT retraction and PPW movement causing wilmer residuals throughout the pharynx. [employer] discussed these observations at the end of the instrumental assessment and discussed multiple diet options as well as the pros/ cons and safety risks. It is recommended that Mr. Goldstein be placed on, the safest recommendation, of mechanical soft solids with thin liquids with no straws and small sips with meds crushed in applesauce as allowed or cut in half with applesauce, as well as a puree/pudding wash with his meals or on a regular /thin diet attempting to avoid more fibrous, dry meats and additional sauces/gravys ensuring small bites and sips, as well as the implementation of a puree/pudding wash between every 2-3 bites. He expressed understanding. Speech/Language MBS Assessment/Goals/Plan Assessment Date of Evaluation: 05/02/23 Evaluation Type Initial Certification Assessment/Problems dysphagia per MD order Does Patient Qualify for Service No Qualify/Failure Comment Based on clinical observations made during MBSS, skilled speech therapy services are not warranted at this time, if pt follows recommended diet and implements compensatory strategies discussed and reviewed. Recommendations PHYSICIAN CERTIFICATION: The specified therapy services are required, authorized, and reviewed every 30 days. Diet Recommendations regular or mechanical soft Liquid Type Recommendations Normal/Thin SL Swallow Guidelines Alt bite w/sip thru meal, Standard Aspiration Prec., Crush meds as allowed*,Eat at slow rate,Reflux precautions Crush Meds Crush all meds,Small pills w/ applesauce,Small OK/Crush large pill Dysphagia Swallow Precautions/Strategies Sitting Upright (90 deg),Chin Tuck,Double Swallow,No Straw, Small Bites and Sips,Alternate Liquids/Solids Place Food on Either side of Mouth Plan Pt/Guardian verbally ack understanding Yes of dx/prognosis/goals G -code Required No Education Instructions provided Discussed MBSS results, diet recommendation options, aspiration precautions and compensatory strategies with pt who expressed understanding . Pt/Caregiver able to recall information Able to recall/restate Reinforcement needed No Mod Barium Swallow Setup Exam Setup Radiologist Brian Melgoza Level of Consciousness Awake,Alert,Appropriate, Follows Commands Mod Barium Swallow-Lat View Textures Lateral View Food Presentation Thin Liquid via Cup,Thin Liquid via Straw,Pureed Food- Thin,Mech. Soft Food- Regular, Barium Tablet,Regular Food, Pudding Comment puree: applesauce MS: nutrigrain bar regular: grahamn cracker Oral Phase Labial Closure Minimal Impairment Bolus Formation Pooling L/R Moderate Impairment Bolus Formation under Tongue Mild Impairment Bolus Formation Scattered Loss Moderate Impairment Mastication Rotary Chew Moderate Impairment Mastication Munching Moderate Impairment Mastication Lateralization Mild Impairment Lingual Movement Moderate Impairment Residue Clearing Moderate Impairment Pharyngeal Phase A/P Lingual Propulsion Spills Moderate Impairment Swallow Response Delay Mild Impairment Base of Tongue Moderate Impairment Epiglottic Coverage Moderate Impairment Laryngeal Elevation Moderate Impairment Vallecular Retention Clearing Severe Impairment Pharyn. Wall Residue Clearing Moderate Impairment Piriform Sinus Retention Mild Impairment Aspiration? Yes Degree of Aspiration Medium When aspirated During the swallow Consistencies Aspirated Aspiration during swallow with thin liquids and penetration trace residuals of MS and regular solids after multiple trials before and after the swallow. Silent aspiration? Inconsistent Reason for aspiration large consecutive sips/straw sips Mod Barium Swallow-AP View Performed Mod Barium Swallow A/P View Test Not Applicable/Performed PHYSICIAN CERTIFICATION: I certify the specified therapy services for Brian Marcosananda Goldstein are required, authorized, and reviewed every 30 days.
== END 2023-05-02 23:59 ==
LOC: RAD 10:37
PROVIDERS: PCP Family Medicine; Visit Provider Nurse Practitioner Family
DX: R13.10 Dysphagia, unspecified (principal); R63.4 Abnormal weight loss; R15.9 Full incontinence of feces
CPT/HCPCS: 70371; 92611

== ENCOUNTER 2023-05-07 16:36 | Outpatient (CLI) | payer MEDICARE, SELFPAY ==
[2023-05-10 14:13] LABS: Pancreatic Elastase, Fecal 150 (>200)
[2023-05-11 14:59] LABS: Calprotectin, Fecal 274 ug/g (0-120)
== END 2023-05-07 23:59 ==
PROVIDERS: PCP Family Medicine; Visit Provider Nurse Practitioner
DX: R19.7 Diarrhea, unspecified (principal); R15.9 Full incontinence of feces; E11.9 Type 2 diabetes mellitus without complications; R13.10 Dysphagia, unspecified
CPT/HCPCS: 82656; 83993

== ENCOUNTER 2023-06-07 09:15 | Day surgery (SDC) | payer MEDICARE, SELFPAY ==
[2023-06-05 12:40] VITALS: BMI 26.7
[2023-06-07 09:49] VITALS: BP 145/87; PULSE 68; RESP 16; TEMP 36.6; O2SAT 96
[2023-06-07 09:58] LABS: POC Glucose,Bedside 78 (70-110)
--- NOTE | 2023-06-07 10:03 | EXP.ANES.CKL ---
[facility] Disclaimer: The information contained in this section may have been updated after the patient was seen, as this information can be updated by other users. Medical History History of acquired spondylolisthesis Emphysema/COPD COPD (chronic obstructive pulmonary disease) Diverticulosis Seizure DEBBIE (obstructive sleep apnea) Restless leg syndrome Tremor Surgical History History of knee surgery History of shoulder surgery History of lumbar fusion Family History Other Cancer Coronary artery disease Diabetes Heart attack Hyperlipidemia Hypertension Social History Smoking Status: Never smoker alcohol intake: never substance use type: denies use current occupational status: retired Travel in the last 8 weeks: None household members: spouse housing: house caffeine: Yes do you feel safe at home: Yes victim of physical abuse: No victim of emotional abuse: No victim of sexual abuse: No [facility] Anesthesia Checklist Patient Identification Patient Identification: Arm Band and Verbal (Name & ) Structural Data Admitted From: Home Planned Operative Procedure/s: EGD/Colonoscopy Consent for Planned Operative Procedure(s) Verified: Yes NPO Status Verified Time NPO: 00:00 Additional verifications Anesthesia Reactions: Yes (ponv, drowsiness) Hx Blood Transfusions: No Blood Transfusion Reaction: No Airway Assessment Mallampati Score:: Class I C-Spine Mobility Assessed: Yes TMJ Mobility Assessed: Yes Dentition: Dentures-poor fitting (Patient will keep dentures in due to exposed posts. Patient understands risks. ) Neurological Assessment Level of Consciousness: Awake Hx Seizures: No Numbness or tingling in extremities: No Anesthesia Plan Anesthesia Risk discussed: Yes Anesthesia Plan: Verified ASA Class: III Anesthesia Type: MAC
[2023-06-07] MEDS: LACTATED RINGERS 1000ML 1,000 ML 25 ML IV (10:08)
[2023-06-07 10:31] VITALS: O2SAT 96
[2023-06-07 10:53] VITALS: BP 109/55; PULSE 55; RESP 17; TEMP 36.3; O2SAT 97
--- NOTE | 2023-06-07 11:01 | HMH.SCOPE ---
Procedure: Date: 06/07/23 Patient Date of :: 1950 Procedure Performed:: EGD and Dilation Indications:: Dysphagia, GERD Performing Provider:: Rosemarie Dennis MD Referring Provider:: Sanna Dennis APRN Sedation:: Propofol Procedure:: The gastroscope was gently passed through the incisoral orifice into the oral cavity and under direct visualization the esophagus was intubated. The endoscope was passed down the esophagus, through the stomach, and into the duodenum. Color, texture, mucosa, and anatomy of the esophagus, stomach, and duodenum were carefully examined with the scope. Findings:: Oropharynx: normal Esophagus: normal, empiric dilation performed with 58F bougie EG Junction: intact at 40 cm Cardia: normal Fundus: normal Body: normal Antrum: normal Duodenal bulb: normal Duodenum (second and third portion): normal Impression: Symptomatic dysphagia treated with bougie dilation Recommendations:: Repeat dilation in about three years or so, sooner if clinically indicated. Chin-tuck swallowing will help with aspiration risks Complications:: None Estimated blood obtained (mL): 0 Colonoscopy Component Colonoscopy Component Was a colonoscopy performed during today's procedure?: No
[2023-06-07 11:03] VITALS: BP 97/62; PULSE 55; RESP 17; TEMP 36.3; O2SAT 93
--- NOTE | 2023-06-07 11:04 | HMH.SCOPE ---
Procedure: Date: 06/07/23 Patient Date of :: 1950 Procedure Performed:: Screening colonoscopy Indications:: Personal history of polyps Performing Provider:: Rosemarie Dennis MD Referring Provider:: Sanna Dennis APRN Sedation:: Propofol Procedure:: After placing the patient in the left lateral decubitus position, the colonoscopy was gently inserted into the rectum and under direct visualization advanced to the cecum which was identified by transillumination in the right lower quadrant, identification of the ileocecal valve, appendiceal orifice, and cecal strap. Color, texture, mucosa, and anatomy of the colon were carefully examined with the scope. Findings:: Anal canal: normal Rectum: normal Sigmoid colon: normal without polyps or inflammatory changes, scattered diverticulosis noted Descending colon: normal without polyps or inflammatory changes Splenic flexure: normal Transverse colon: normal without polyps or inflammatory changes Hepatic flexure: normal Ascending colon: normal without polyps or inflammatory changes Cecum: normal Terminal ileum: not visualized Impression: Scattered diverticulosis otherwise normal colonoscopy Recommendations:: Follow up examination in about FIVE years or so, sooner if clinically indicated in view of history of polyps. Complications:: None Estimated blood obtained (mL): 0 Colonoscopy Component Colonoscopy Component Was a colonoscopy performed during today's procedure?: Yes Recommended follow up colonoscopy of at least 10 years?: No If no, follow up colonoscopy recommended in ___ years?: Five Reason for not recommending >/= 10 yr follow-up interval?: Polyps history
[2023-06-07 11:13] VITALS: BP 112/67; PULSE 70; RESP 17; TEMP 36.3; O2SAT 96
[2023-06-07 11:23] VITALS: BP 129/59; PULSE 72; RESP 17; TEMP 36.3; O2SAT 97
== END 2023-06-07 11:39 | disposition home or self-care (01) ==
PROVIDERS: PCP Family Medicine; Visit Provider Internal Medicine Gastroenterology
PROC: 0DJ08ZZ Inspection of Upper Intestinal Tract, Via Natural or Artificial Opening Endoscopic (ICD-10-PCS; CPT 43235; principal; 2023-06-07 10:30)
DX: K21.9 Gastro-esophageal reflux disease without esophagitis (principal); R13.10 Dysphagia, unspecified; Z12.11 Encounter for screening for malignant neoplasm of colon; Z86.010 Personal history of colon polyps; K57.30 Diverticulosis of large intestine without perforation or abscess without bleeding; Z79.899 Other long term (current) drug therapy
CPT/HCPCS: 43248; G0105; 82962

== ENCOUNTER 2024-02-18 10:02 | Outpatient (CLI) | payer MEDICARE, SELFPAY ==
[2024-02-18 10:26] LABS: Basophils % 0.4 % (0.1-2.0); Eosinophils # 0.3 K/mm3 (0.0-0.4); Hematocrit 41.3 % (42.0-52.0); Hemoglobin 14.2 g/dL (14.1-18.0); Lymphocytes # 1.5 K/mm3 (0.7-4.5); Lymphocytes % 16.4 % (10-50); Mean Corpuscular HGB Conc 34.4 g/dL (31.8-35.4); Mean Corpuscular Hemoglobin 31.6 pg (27.0-31.2); Mean Corpuscular Volume 91.8 fl (80-94); Mean Platelet Volume 9.1 fl (7.4-10.4); Monocytes # 0.7 K/mm3 (0.1-1.0); Monocytes % 7.1 % (1.7-9.3); Neutrophils # 6.7 K/mm3 (1.8-7.8); Neutrophils % 72.8 % (37.0-80.0); Platelet Count 194 K/mm3 (142-424); Red Cell Distribution Width 13.2 % (11.5-17.5); White Blood Count 9.2 K/mm3 (4.8-10.8)
[2024-02-18 11:10] LABS: Albumin Level 4.1 g/dl (3.5-5.0); Chloride 103 mmol/L (98-107); Sodium 143 mmol/L (136-145)
[2024-02-18 11:11] LABS: Potassium 4.2 mmoL/L (3.5-5.1)
[2024-02-18 11:13] LABS: Alanine Aminotransferase 27 U/L (12-78); Albumin/Globulin Ratio 1.2 (1.1-1.8); Alkaline Phosphatase 96 U/L (38-126); Anion Gap 13.2 mEq/L (5-15); Aspartate Amino Transferase 36 U/L (17-59); Bilirubin,Total 0.6 mg/dl (0.2-1.3); Blood Urea Nitrogen 10 mg/dl (9-20); Carbon Dioxide 31 mmol/L (22.0-30.0); Estimated Glomerular Filt Rate 95 ml/min (>60); GFR (African American) 115 ML/MIN (>60); Globulin 3.3 g/dL (1.3-3.2); Total Protein,Serum 7.4 g/dl (6.3-8.2)
[2024-02-18 11:14] LABS: Calcium 10.1 mg/dl (8.4-10.2); Glucose 111 mg/dl (74-100)
[2024-02-21 15:08] LABS: QuantiFERON-TB Gold Plus Negative (Negative)
== END 2024-02-18 23:59 | disposition home or self-care (01) ==
PROVIDERS: PCP Family Medicine; Visit Provider Dermatology
DX: L40.0 Psoriasis vulgaris (principal)
CPT/HCPCS: 36415; 80053; 85025; 86480

== ENCOUNTER → 2024-02-28 11:46 | Outpatient (CLI) | payer MEDICARE, SELFPAY | LOC: SL 11:48 | PROVIDERS: PCP Family Medicine; Visit Provider Specialist | DX: G47.33 Obstructive sleep apnea (adult) (pediatric) (principal) | CPT/HCPCS: 94762 ==

== ENCOUNTER → 2024-04-16 20:11 | Outpatient (CLI) | payer MEDICARE, SELFPAY | PROVIDERS: PCP Family Medicine; Visit Provider Specialist | DX: G47.33 Obstructive sleep apnea (adult) (pediatric) (principal) | CPT/HCPCS: 95811 ==

== ENCOUNTER 2024-05-13 08:12 | Outpatient (CLI) | payer MEDICARE, SELFPAY ==
[2024-05-13 08:28] LABS: Basophils % 0.5 % (0.1-2.0); Eosinophils # 0.2 K/mm3 (0.0-0.4); Hematocrit 41.7 % (42.0-52.0); Hemoglobin 14.3 g/dL (14.1-18.0); Lymphocytes # 1.6 K/mm3 (0.7-4.5); Lymphocytes % 24.7 % (10-50); Mean Corpuscular HGB Conc 34.3 g/dL (31.8-35.4); Mean Corpuscular Hemoglobin 31.8 pg (27.0-31.2); Mean Corpuscular Volume 92.7 fl (80-94); Mean Platelet Volume 9.1 fl (7.4-10.4); Monocytes # 0.5 K/mm3 (0.1-1.0); Monocytes % 7.2 % (1.7-9.3); Neutrophils # 4.2 K/mm3 (1.8-7.8); Neutrophils % 64.4 % (37.0-80.0); Platelet Count 169 K/mm3 (142-424); Red Cell Distribution Width 13.1 % (11.5-17.5); White Blood Count 6.4 K/mm3 (4.8-10.8)
[2024-05-13 09:02] LABS: Alanine Aminotransferase 23 U/L (12-78); Albumin Level 4.6 g/dl (3.5-5.0); Albumin/Globulin Ratio 1.5 (1.1-1.8); Alkaline Phosphatase 72 U/L (38-126); Anion Gap 8.9 mEq/L (5-15); Aspartate Amino Transferase 31 U/L (17-59); Bilirubin,Total 0.9 mg/dl (0.2-1.3); Blood Urea Nitrogen 12 mg/dl (9-20); Calcium 10.1 mg/dl (8.4-10.2); Carbon Dioxide 33 mmol/L (22.0-30.0); Chloride 102 mmol/L (98-107); Estimated Glomerular Filt Rate 95 ml/min (>60); GFR (African American) 115 ML/MIN (>60); Glucose 181 mg/dl (74-100); Potassium 3.9 mmoL/L (3.5-5.1); Sodium 140 mmol/L (136-145); Total Protein,Serum 7.6 g/dl (6.3-8.2)
[2024-05-15 20:10] LABS: QuantiFERON-TB Gold Plus Negative (Negative)
== END 2024-05-13 23:59 | disposition home or self-care (01) ==
LOC: LAB 08:13
PROVIDERS: PCP Family Medicine; Visit Provider Dermatology
DX: L40.0 Psoriasis vulgaris (principal); Z79.899 Other long term (current) drug therapy
CPT/HCPCS: 36415; 80053; 85025; 86480

== ENCOUNTER 2024-09-20 09:31 | Emergency (ER) | payer MEDICARE, SELFPAY ==
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
--- OUTSIDE RECORDS SUMMARY | 2024-06-27 04:15 | XMS_ITS ---
Author Organization [facility] Address [address] [place] [phone] Care Team Providers Care Washroom Attendant Name Role Phone Valeria Hubbard Primary Care Provider [phone] Results Component Value Reference Range Notes P-TSH Reviewed date:07/08/2024 10:40:39 AM Interpretation:0.09 Performing Lab: Notes/Report: Test performed by [facility] [employer] [address] [place] [address] , [address], [place] [address] Mario Roman MD, Records And Information Manager CLIA: [id number] TSH 0.09 0.43-5.25 mU/L REASON FOR VISIT blood work Medications Medication SIG (Take, Route, Frequency, Duration) Notes Start Date End Date Status Gralise 600 MG 1 tab(s) QAM, 3 tab( s) QPM orally Dispense as written 01/08/2024 Active Rosuvastatin Calcium 20 MG 1/2 tab(s) orally once a day; Duration: 90 days Active amLODIPine Besy-Benazepril HCl 10-20 MG TAKE 1 CAPSULE BY MOUTH DAILY; Duration: 90 Active Terazosin HCl 1 MG 1 cap(s) orally once a day (at bedtime); Duration: 90 Active Glimepiride 1 MG 1/2 tablet with breakfast or the first main meal of the day Orally Once a day 11/14/2022 Active Keppra 500 MG 1 tab(s) orally 2 times a day Active Hydrocort-Pramoxine (Perianal) 2.5-1 % 1 application Externally Three times a day 12/25/2023 Active traMADol HCl 50 MG 1 tab(s) orally qid prn 05/18/2022 Active ONE TOUCH TEST STRIPS DIRECTED TESTS ONCE A DAY 08/17/2021 Active Albuterol Sulfate HFA 108 (90 Base) MCG/ACT 1-2 puff(s) inhaled every 6 hours, prn 02/16/2022 Active Levothyroxine Sodium 75 MCG 1.5 tab(s) Orally once daily; Duration: 30 days Active CareTouch CPAP & BIPAP Hose DIRECTED 12/24/2012 Active CPAP SUPPLIES 1 SET OF SUPPLIES DIRECTED 09/07/2017 Active Levothyroxine Sodium 75 MCG 1 tablet in the morning on an empty stomach Orally Once a day; Duration: 30 day(s) Active Taltz 80 MG/ML as directed subcutaneously every 4 weeks Active Pantoprazole Sodium 40 MG TAKE 1 TABLET BY MOUTH TWICE DAILY; Duration: 90 Active Clobetasol Propionate 0.05 % 1 application Externally Twice a day 03/31/2024 Active Encounters Encounter Location Date Provider Diagnosis [facility] [address] [facility] [address] [place], [place] [id number] 06/27/2024 Valeria Hubbard Acquired hypothyroid ism E03.9 Assessments Encounter Date Diagnosis (ICD Code) Assessment Notes Treatment Notes Treatment Clinical Notes Section Notes 06/27/2024 Acquired hypothyroidism (ICD-10 - E03.9) Plan Of Treatment Next Appt Details Provider Name:Valeria Harris, 02/03/2025 09:15:00 AM, [address] [facility] [address], [address], [place], [place], [phone], Progress Notes * NADYA MADDOXDOB:[birth year] (73 yo M)Acc No.[id number]:06/27/2024 Patient: NADYA MORTON Provider: Valeria Hubbard M.D. :1950 A ge:73 Y S ex:Male Date:06/27/2024 Address:[address] [place] [address] [place]i G[place]HI [id number] Subjective: * Chief Complaints: * 1 . Blood work. * Medical History: * Medications: T aking Levothyroxine Sodium 75 MCG Tablet 1.5 tab(s) Orally once daily , Taking Levothyroxine Sodium 75 MCG Tablet 1 tablet in the morning on an empty stomach Orally Once a day , Taking Taltz [...] 1 application Externally Twice a day , Taking Pantoprazole Sodium 40 MG Tablet Delayed Release TAKE 1 TABLET BY MOUTH TWICE DAILY , Medication List reviewed and reconciled with the patient Objective: * Vitals: Assessment: * Assessment: 1. A cquired hypothyroidism - E03.9 Plan: * Treatment: Value Reference Range T SH 0.09 L 0.43-5.25 - mU/L * Valeria Hubbard 07/08/2024 1 0:40:38 AM > See phone encounter * Images: Billing Information: * Visit Code: * Procedure Codes: * Electronic signature of Valeria Hubbard MD on 09/20/2024 at 09:47 AM EDT Sign off status: Pending * Provider: Valeria Hubbard M.D. Date: 0 06/27/2024 Generated for Aditi conroy/Karlee/Shelbie on: 0 09/20/2024 09:47 AM EDT
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
[2024-09-20] VITALS (7 sets, daily range): BP systolic 118–153; BP diastolic 69–85; PULSE 60–71; RESP 12–18; TEMP 36.9; O2SAT 96–99; BMI 25.1
--- NOTE | 2024-09-20 09:43 | CT_ITS ---
PROCEDURE INFORMATION: Exam: CT Temporal Bones Without Contrast. Exam date and time: 09/20/2024 10:47 AM Age: 73 years old Clinical indication: Other: Right ear/mastoid/neck pain/redness/swelling TECHNIQUE: Imaging protocol: Computed tomography of the temporal bones without contrast. Radiation optimization: All CT scans at this facility use at least one of these dose optimization techniques: automated exposure control; mA and/or kV adjustment per patient size (includes targeted exams where dose is matched to clinical indication); or iterative reconstruction. COMPARISON: CT HEAD/BRAIN WO CON 09/20/2024 10:41 AM FINDINGS: Right inner ear: Normal. Right ossicles and middle ear: There is no fluid in the middle ear or suggestion of erosion of the scutum. The ossicles are intact. Right external auditory canal: There is soft tissue swelling of the right external auditory canal but no erosion of the bony structures. Right facial nerve canal: Normal. Right jugular foramen: No jugular dehiscence. Right carotid canal: No aberrant carotid canal. Right mastoid air cells: There is no evidence of fluid accumulation in the mastoid air cells or destructive features. There is edema surrounding the right ear and overlying the right mastoid.There is no evidence of a radio-opaque foreign body. Left inner ear: Normal. Left ossicles and middle ear: Normal. The middle ear ossicles are intact. Left external auditory canal: Normal. Left facial nerve canal: Normal. Left jugular foramen: No jugular dehiscence. Left carotid canal: No aberrant carotid canal. Left mastoid air cells: Normal. No mastoid effusions. Soft tissues: See Right mastoid air cells finding. IMPRESSION: 1. There is no evidence of fluid accumulation in the mastoid air cells or destructive features. 2. There is edema surrounding the right ear and overlying the right mastoid.There is no evidence of a radio-opaque foreign body. 3. There is soft tissue swelling of the right external auditory canal but no erosion of the bony structures. 4. There is no fluid in the middle ear or suggestion of erosion of the scutum. The ossicles are intact.
--- NOTE | 2024-09-20 09:43 | CT_ITS ---
PROCEDURE INFORMATION: Exam: CT Neck With Contrast Exam date and time: 09/20/2024 10:43 AM Age: 73 years old Clinical indication: Other: Right ear/mastoid/neck pain/redness/swelling TECHNIQUE: Imaging protocol: Computed tomography of the neck with contrast. Radiation optimization: All CT scans at this facility use at least one of these dose optimization techniques: automated exposure control; mA and/or kV adjustment per patient size (includes targeted exams where dose is matched to clinical indication); or iterative reconstruction. Contrast material: ISOVUE; Contrast volume: 75 ml; Contrast route: IV; COMPARISON: CT SOFT TISSUE NECK W CON 09/20/2024 10:43 AM FINDINGS: Salivary glands: See Soft tissues finding. Pharynx: Unremarkable. No significant tonsillar enlargement. Larynx: Unremarkable. Epiglottis is normal. Thyroid: Normal. No enlarged or calcified nodules. Trachea: Visualized trachea is unremarkable. Lungs: Prominence of the interstitial markings in the periphery of the lung apices. Questionable early interstitial lung disease. Lymph nodes: Numerous nonenlarged cervical lymph nodes. Bones/joints: Temporal bones with discussed in a separate examination. Soft tissues: Inflammatory changes are noted involving the right neck at the auricular level extending inferiorly. There is no distinct fluid collection and this does extend to the parotid gland. This could represent parotitis. There is no fluid collection. IMPRESSION: Inflammatory changes starting at the level of the right ear extending inferiorly. This involves the parotid gland. Possible parotitis versus a soft tissue infection.
--- NOTE | 2024-09-20 09:46 | CT_ITS ---
PROCEDURE INFORMATION: Exam: CT Head Without Contrast Exam date and time: 09/20/2024 10:41 AM Age: 73 years old Clinical indication: Other: Right ear pain; Additional info: Right ear/mastoid/neck pain/redness/swelling TECHNIQUE: Imaging protocol: Computed tomography of the head without contrast. Radiation optimization: All CT scans at this facility use at least one of these dose optimization techniques: automated exposure control; mA and/or kV adjustment per patient size (includes targeted exams where dose is matched to clinical indication); or iterative reconstruction. COMPARISON: MR HEAD/BRAIN WO/W CON 02/16/2020 8:15 AM FINDINGS: Brain: No acute intracranial hemorrhage.. There is mild diffuse heterogeneity of the white matter attenuation, consistent with chronic white matter ischemic changes. Mild cerebral atrophy Cerebral ventricles: No ventriculomegaly. Paranasal sinuses: Visualized sinuses are unremarkable. No fluid levels. Mastoid air cells: Visualized mastoid air cells are well aerated. Bones: Degenerative changes in the temporomandibular joints.. No acute fracture. Soft tissues: Unremarkable. IMPRESSION: No acute intracranial hemorrhage..
--- OUTSIDE RECORDS SUMMARY | 2024-09-20 09:46 | XMS_ITS | Patient Health Record ---
Author Organization [facility] Address [address] [place] [address] [place] [address] Support Name Relationship Address Phone NADYA MADDOX Guarantor Unknown [phone] Reason For Referral No Information Immunizations Vaccine Route Administration Date Status Comme nts Pneumococcal polysaccharide PPV23 Unknown 11/10/2013 Administered PT DECLINES Influenza (split), 3 yrs and above Unknown 11/10/2013 Administered PT DECLINES Problems Problem Type SNOMED Code ICD Code Onset Dates Problem Status W/U Status Risk Notes Problem Other specified counseling (V65.40) 11/10/2013 Active confirmed Problem Shortness of breath (285404812) Shortness of breath (786.05) 11/10/2013 Inactive confirmed Plan Of Treatment No Information Insurance Providers Payer Name Payer Address Payer Phone Subscriber Number Group Number Insured Name Patient Relationship to Insured Coverage Start Date Coverage End Date [facility] [address] [address] [place], [place] [id number] NADYA MADDOX Self - patient is the insured 4
--- OUTSIDE RECORDS SUMMARY | 2024-09-20 09:46 | XMS_ITS | Clinical Summary ---
Author Organization [facility] Address [address] [place] [address] Care Team Providers Care Brick Washer Name Role Phone David Hubbard MD Primary Care Provider [phone] Family History Medical History Relation Name Comments Hypertension Father Other cancer Father Other cancer Mother Relation Name Status Comments Father Mother Social History Tobacco Use Types Packs/Day Years Used Date Smoking Tobacco: Never Sex and Gender Information Value Date Recorded Sex Assigned at Not on file Legal Sex Male 8:41 PM EDT Gender Identity Not on file Sexual Orientation Not on file Last Filed Vital Signs Vital Sign Reading Time Taken Comments Blood Pressure - - Pulse - - Temperature - - Respiratory Rate - - Oxygen Saturation - - Inhaled Oxygen Concentration - - Weight 99.8 kg (220 lb) 03/29/2016 8:20 AM EST Height 182.9 cm (6') 03/13/2016 8:54 AM EST Body Mass Index 29.84 03/13/2016 8:54 AM EST Plan of Treatment Not on file Care Teams Brick Washer Relationship Specialty Start Date End Date David Hubbard MD [address] [place] [address] PCP - General 07/02/20
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
--- NOTE | 2024-09-20 09:47 | HMH.EDGENADL ---
Discharge Plan Disposition Patient Disposition: Home, Self-Care Condition: Good Prescriptions Prescriptions: New ciprofloxacin HCl 750 mg tablet 750 mg PO BID Qty: 14 0RF No Action levothyroxine 125 mcg tablet 125 mcg PO DAILY glimepiride 1 mg tablet 1 mg PO DAILY diphenoxylate-atropine 2.5-0.025 mg tablet 1 tab PO HS PRN gabapentin [Gralise] 600 mg tablet extended release 24 hr 600 mg PO HS Rx Instructions: 1 tablet in the am & 3 QHS pantoprazole 40 mg tablet,delayed release (DR/EC) 40 mg PO DAILY levetiracetam 500 mg tablet 500 mg PO BID 90 Days Qty: 180 3RF Rx Instructions: Take 1 tablet by mouth twice daily terazosin 1 mg capsule 1 mg PO DAILY 90 Days Qty: 90 amlodipine-benazepril 10-20 mg capsule 1 cap PO DAILY rosuvastatin 20 mg tablet 20 mg PO DAILY vitamin B complex [B Complex-Vitamin B12] Tablet 1 tab PO DAILY colestipol [Colestid] 1 gram tablet 1 g PO BID 90 Days Qty: 180 2RF Referrals Follow up/Referrals: David Hubbard MD [Primary Care Provider, Medical] - See instructions Activity Restrictions/Add. Instructions Additional Instructions/Restrictions: You are being treated with an antibiotic, ciprofloxacin, to treat your skin infection. Take this twice daily as prescribed for 7 days. I encourage you to follow-up closely with your primary care physician on Sunday of next week to ensure that symptoms are improving. If you develop any new or worsening symptoms, such as worsening swelling or pain, shortness of breath, difficulty swallowing, vision changes, pain with eye movement, or if you become concerned for your health for any reason, return to the emergency department for evaluation. Clinical Impressions Clinical Impression: Perichondritis, Cellulitis, Acute parotitis Print Language Print Language: Guamanian Discharge ED Provider: Severo Lopez Adult HPI General Chief complaint: PAIN Stated complaint: bug bite under ear/pain Time Seen by Provider: 09/20/24 09:35 Mode of Arrival: Ambulatory Source of Information: Patient Limitations: No Limitations History of Present Illness HPI narrative: Brian Goldstein is a 73F with a history of diabetes mellitus, hearing loss, GERD who presents to the emergency department for complaints of pain, redness and swelling to his right ear neck area. Patient states that on Sunday, he thought he got a bug bite behind his right ear because he had some pain and felt a knot in this area. He states that over the next 2 to 3 days, it has increased in size and redness and swelling to become more painful. He states that it now involves the ear itself. He states that it has been painful for him to wear his hearing aids. He does state that he has some pain and feels like there is some swelling in the right side of his neck as well. He reports a fever last night of 100.5 ?F and took Advil. He states that he has had cellulitis before and is not sure if this is the same thing. Related Data Home Medications ?Medication ?Instructions ?Recorded ?Confirmed terazosin 1 mg capsule 1 mg PO DAILY prostate 90 days ##90 09/11/17 06/11/24 amlodipine 10 mg-benazepril 20 mg 1 cap PO DAILY HTN 02/03/20 06/11/24 capsule rosuvastatin 20 mg tablet 20 mg PO DAILY Cholesterol 02/03/20 06/11/24 vitamin B complex (B 1 tab PO DAILY Supplement 02/03/20 06/11/24 Complex-Vitamin B12 tablet) levothyroxine 125 mcg tablet 125 mcg PO DAILY thyroid 10/04/20 06/11/24 glimepiride 1 mg tablet 1 mg PO DAILY 05/04/23 06/11/24 diphenoxylate-atropine 2.5 1 tab PO HS PRN 06/11/23 06/11/24 mg-0.025 mg tablet gabapentin 600 mg tablet,extended 600 mg PO HS 03/21/24 06/11/24 release 24 hr (Gralise) pantoprazole 40 mg tablet,delayed 40 mg PO DAILY 06/11/24 06/11/24 release Previous Rx's ?Medication ?Instructions ?Recorded Colestid 1 gram tablet (colestipol) 1 g PO BID 90 days #180 tabs 10/04/23 levetiracetam 500 mg tablet 500 mg PO BID Seizure 90 days #180 06/11/24 tabs ciprofloxacin HCl 750 mg tablet 750 mg PO BID #14 tabs 09/20/24 Allergies Allergy/AdvReac Type Severity Reaction Status Date / Time codeine Allergy Intermediate SEVERE Verified 06/11/24 12:39 NAUSEA Sulfa (Sulfonamide Allergy Unknown Verified 06/11/24 12:39 Antibiotics) [facility] Disclaimer: The information contained in this section may have been updated after the patient was seen, as this information can be updated by other users. Medical History History of acquired spondylolisthesis Emphysema/COPD COPD (chronic obstructive pulmonary disease) Diverticulosis Seizure suspected Complex partial seizures, asymptomatic on Keppra, last 01/2020 DEBBIE (obstructive sleep apnea) Restless leg syndrome Asymptomatic, Gralise, OTC slow Fe Tremor Left hand, chronic, present at least since 2019, unchanged, with intention, no family history, no evidence of parkinsonian features. Clinical impression: Intentional tremor Surgical History History of knee surgery History of shoulder surgery History of lumbar fusion Family History Mother Cancer brain cancer; at age 63 Father Cancer lung cancer; at 71 Sister Cancer breast cancer; in remission now; FHx: mental illness Dementia Other Coronary artery disease Diabetes Heart attack Hyperlipidemia Hypertension Social History Smoking Status: Never smoker alcohol intake: never substance use type: denies use current occupational status: retired Travel in the last 8 weeks?: None household members: spouse housing: house caffeine: Yes do you feel safe at home: Yes victim of physical abuse: No victim of emotional abuse: No victim of sexual abuse: No Have you lived/traveled outside US in past 30 days?: No Contact w/someone who lives/traveled outside US past 30 days?: No Exposure to someone with infectious disease in past 14 days?: No Do you have a fever (greater than 100.4 F or 38 C)?: No Have you tested positive for COVID-19?: No Exposed to someone with COVID-19 in past 14 days?: No Do you have a sore throat?: No Do you have a cough?: No Do you have any weakness?: No Do you have any diarrhea?: No Are you experiencing any unusual bleeding?: No Do you have any muscle aches/pain?: No Do you have any abdominal pain?: No Are you experiencing loss of taste or smell?: No Other Medical History Have you received the Flu Vaccine for this season: No Have you received the Pneumonia Vaccine: No ROS Obtained: Yes Systems reviewed as appropriate & no additional complaints except as documented Physical Exam General General appearance: alert and in no apparent distress Head Head exam: atraumatic Eye Eye exam: Present normal appearance ENT ENT exam: Present other (Cartilaginous portion of right external ear appears erythematous and mildly swollen. Tenderness when pulling down on the earlobe. He has some tenderness but no bogginess or erythema in the mastoid area. He has tenderness and erythema over the right lateral neck. There is erythema extending from ) Neck Neck exam: Present full ROM Chest Chest inspection: Present symmetric chest wall rise Respiratory Respiratory exam: Present normal lung sounds bilaterally; Absent respiratory distress, wheezes or stridor Cardiovascular Cardiovascular exam: Present regular rate and normal rhythm Abdominal Exam Abdominal exam: Present soft; Absent tenderness or guarding exam: Present deferred Extremities Exam Extremities exam: Present normal inspection Back Exam Back exam: Present normal inspection Neurological Exam Neurological exam: Present alert and oriented X3 Psychiatric Psychiatric exam: Present normal affect Skin Skin exam: Present warm and dry Medical Decision Making Medical Records Screening: Per USPSTF and CDC recommendations, given the prevalence of disease in our region, it is our hospital?s policy to screen for HIV and viral Hepatitis for all patients aged 18 and over and those with ongoing risk factors. João Inquiry Pt receiving controlled substance: No Vital Signs: 09/20/24 10:00 09/20/24 10:01 09/20/24 10:07 Temperature 98.4 F 98.4 F Temperature Source Oral Oral Pulse Rate 65 71 Pulse Rate [Right] 71 Respiratory Rate 12 12 Blood Pressure 141/81 H 153/85 H Blood Pressure [Right Arm] 153/85 H Blood Pressure Mean Blood Pressure Mean [Right Arm] 107 Blood Pressure Source Automatic Cuff Blood Pressure Source [Right Arm] Automatic Cuff Blood Pressure Position Supine Blood Pressure Position [Right Arm] Supine 02 Sat by Pulse Oximetry 97 99 99 Oxygen Delivery Method Room Air Room Air 09/20/24 11:00 09/20/24 11:30 09/20/24 12:00 Temperature Temperature Source Pulse Rate 68 62 60 Pulse Rate [Right] Respiratory Rate 18 Blood Pressure 147/83 H 125/69 130/72 Blood Pressure [Right Arm] Blood Pressure Mean 98 Blood Pressure Mean [Right Arm] Blood Pressure Source Blood Pressure Source [Right Arm] Blood Pressure Position Blood Pressure Position [Right Arm] 02 Sat by Pulse Oximetry 97 97 96 Oxygen Delivery Method 09/20/24 12:42 Temperature 98.5 F Temperature Source Oral Pulse Rate 65 Pulse Rate [Right] Respiratory Rate 15 Blood Pressure 118/70 Blood Pressure [Right Arm] Blood Pressure Mean Blood Pressure Mean [Right Arm] Blood Pressure Source Automatic Cuff Blood Pressure Source [Right Arm] Blood Pressure Position Supine Blood Pressure Position [Right Arm] 02 Sat by Pulse Oximetry Oxygen Delivery Method Room Air Lab Data Lab Results 09/20/24 09:52: HCV Ab AYESHA w/Rflx PCR Qn Negative, HIV Ag/Ab Combo Qual Negative 09/20/24 09:54: WBC 6.9, RBC 4.15 L, Hgb 13.2 L, Hct 37.9 L, MCV 91.3, MCH 31.8 H, MCHC 34.8, RDW 12.7, Plt Count 152, MPV 9.0, Neut % (Auto) 77.6, Lymph % (Auto) 11.0, Henderson % (Auto) 9.4 H, Eos % (Auto) 1.4, Baso % (Auto) 0.3, Neut # (Auto) 5.4, Lymph # (Auto) 0.8, Henderson # (Auto) 0.7, Eos # (Auto) 0.1, Baso # (Auto) 0.0, ESR 89 H, Sodium 139, Potassium 3.8, Chloride 104, Carbon Dioxide 28, Anion Gap 10.8, BUN 8 L, Creatinine 0.70, Estimated Creat Clear 78, Estimated GFR 111, Est GFR ( Amer) 135, Glucose 103 H, Calcium 9.7, Total Bilirubin 0.9, AST 37, ALT 19, Alkaline Phosphatase 101, C-Reactive Protein 4.7 H, Total Protein 7.7, Albumin 4.4, Globulin 3.3 H, Albumin/Globulin Ratio 1.3, Procalcitonin 0.040 09/20/24 09:54 09/20/24 09:54 Orders (Tests/Meds): ED MEDICATIONS Discontinued Medications Generic Name Dose Route Start Last Admin Trade Name Freq PRN Reason Stop Dose Admin Acetaminophen 1,000 mg 09/20/24 09:53 09/20/24 10:07 Acetaminophen 500mg Tab PO 09/20/24 09:54 1,000 mg ONCE ONE Administration Iopamidol 150 ml 09/20/24 10:54 09/20/24 10:54 Iopamidol-370 (76%);100ml Bottle IV 09/20/24 10:55 150 ml ONCE ONE Administration Sodium Chloride 10 ml 09/20/24 10:54 09/20/24 10:54 Sodium Chloride 0.9% 10ml Syr (Rad Only) IV 10/20/24 10:53 10 ml NEEDED PRN Administration Maintain IV Site ORDERS Category Date Time Status CT Temporal bone With Stat Cat Scan 09/20/24 09:[address] head/brain wo con Stat Cat Scan 09/20/24 09:[address] soft tissue neck w con Stat Cat Scan 09/20/24 09:43 Completed CBC w/Auto Diff [Complete Blood Count Auto Diff] Stat Lab 09/20/24 09:54 Completed CMP [Comprehensive Metabolic Panel] Stat Lab 09/20/24 09:54 Completed CRP [C-Reactive Protein] Stat Lab 09/20/24 09:54 Completed ESR [Erythrocyte Sedimentation Rate] Stat Lab 09/20/24 09:54 Completed HIV Combo Stat Lab 09/20/24 09:52 Completed Hepatitis C Ab Qual. W/ RFX Stat Lab 09/20/24 09:52 Completed Procalcitonin Stat Lab 09/20/24 09:54 Completed Blood Culture Stat Micro 09/20/24 09:54 Received Medical Decision Narrative: Brian Goldstein is a 73F with a history of diabetes mellitus, hearing loss, GERD who presents to the emergency department for complaints of pain, redness and swelling to his right ear neck area. Patient states that on Sunday, he thought he got a bug bite behind his right ear because he had some pain and felt a knot in this area. He states that over the next 2 to 3 days, it has increased in size and redness and swelling to become more painful. He states that it now involves the ear itself. He states that it has been painful for him to wear his hearing aids. He does state that he has some pain and feels like there is some swelling in the right side of his neck as well. He reports a fever last night of 100.5 ?F and took Advil. He states that he has had cellulitis before and is not sure if this is the same thing. On arrival, patient is normotensive, afebrile, breathing comfortably on room air and speaking full sentences without muffling of his voice. Appropriate oxygen saturation. Physical exam, as stated above, reveals an overall well-appearing male in no distress. He is tolerating secretions appropriately. He has erythema over the cartilaginous portion of his right external ear with tenderness when pulling down on the earlobe. He also has tenderness in the mastoid area but no swelling or bogginess in this area. He has redness and some swelling anterior to the ear at the TMJ area that extends down into the neck. He is tender over the right lateral neck where there is erythema. Tympanic membrane's are normal bilaterally. No significant swelling of the external auditory canals. Differential diagnosis includes, but is not limited to: Malignant otitis externa, mastoiditis, deep space neck abscess, parotitis, sepsis, cellulitis, osteomyelitis, among others. The most morbid conditions were considered and workup was based on these. Workup in the emergency room included: CT head without contrast, CT right temporal bone with IV contrast, CT soft tissue neck with IV contrast, CBC, CMP, CRP, ESR, procalcitonin. Patient was treated with 1 g of oral Tylenol Laboratory workup shows no leukocytosis, hemoglobin mildly low at 13.2 and hematocrit of 37.9 but not far from baseline, platelets within normal limits, ESR is elevated at 89. CMP unremarkable nonactionable. CRP is mildly elevated at 4.7. Procalcitonin normal at 0.04. CT imaging was interpreted by me personally. No acute intracranial findings. No evidence of mastoiditis. There is swelling and inflammatory changes around the external ear and external auditory canal as well as in the superficial layers near the parotid gland. No deep space abscess of the neck. See final radiology report for details. No bony erosion to suggest osteomyelitis. This appears to be most consistent with cellulitis as well as perichondritis and possibly otitis externa. Given there is no destruction of the mastoid segment, does not appear to be a malignant otitis externa given that there does not appear to be significant swelling to the external auditory canal on exam, however is still within the realm of possibility. This is less likely as well as patient stated that the pain started outside the ear and has since migrated throughout the ear and neck. Patient does not meet sepsis criteria. Will treat with course of oral antibiotics, ciprofloxacin. Patient was given very strict return precautions and I instructed him to follow-up closely with his primary care doctor early next week to ensure symptoms are improving. I made patient aware that if symptoms do not improve, he may need admission for IV antibiotics. He and his both demonstrated understanding. They were in agreement with this plan. He was then discharged from the emergency department in stable condition. Critical Care Critical Care Time Critical Care Time: No
--- OUTSIDE RECORDS SUMMARY | 2024-09-20 09:47 | XMS_ITS | Clinical Summary ---
Author Organization [facility] Address [address] [place] [address] Care Team Providers Care Workforce Management Consultant Name Role Phone David Hubbard MD Primary Care Provider Allergies Active Allergy Reactions Criticality Noted Date Comments Sulfa Antibiotics 02/28/2016 Medications amLODIPine-rukhsana zepril (LOTREL) 10-20 MG per capsule Take by mouth Daily. 06/13/2013 Active metaxalone (SKELAXIN) 800 MG tablet Take by mouth 3 (Three) Times a Day. 01/09/2013 Active Blood Glucose Monitoring Suppl (ONE TOUCH ULTRA MINI) W/DEVICE kit 05/23/2013 Active Blood Glucose Monitoring Suppl (ONE TOUCH ULTRA MINI) W/DEVICE kit OneTouch Ultra Blue In Vitro Strip; Patient Sig: OneTouch Ultra Blue In Vitro Strip ; 50; 0; 23-May-2013; Active 05/23/2013 Active ONETOUCH DELICA LANCETS [facility]G [facility] 05/23/2013 Active fenofibric acid (TRILIPIX) 135 MG capsule delayed-release delayed release capsule Take by mouth Daily. 12/24/2012 Active Lancet Devices (EASY TOUCH LANCING DEVICE) [facility] 05/23/2013 Active polycarbophil (FIBERCON) 625 MG tablet Take 625 mg by mouth Daily. Active traMADol (ULTRAM) 50 MG tablet TAKE 1 TABLET BY MOUTH 4 TIMES DAILY NEEDED 01/05/2020 Active terazosin (HYTRIN) 1 MG capsule Take 1 mg by mouth every night at bedtime. 11/21/2019 Active pantoprazole (PROTONIX) 40 MG EC tablet Take 40 mg by mouth 2 (Two) Times a Day. 12/18/2019 Active Gralise 600 MG tablet tablet TAKE 1 TABLET BY MOUTH IN THE MORNING AND 3 AT BEDTIME 01/14/2020 Active potassium chloride (MICRO-K) 10 MEQ CR capsule Take 10 mEq by mouth Daily. 01/05/2020 Active Euthyrox 137 MCG tablet Take 137 mcg by mouth Daily. 11/18/2019 Active glimepiride (AMARYL) 1 MG tablet 03/03/2020 Active chlorhexidine (PERIDEX) 0.12 % solution SWISH WITH 15ML FOR 1 MINUTE AND SPIT TWICE DAILY. DO NOT RINSE. 02/25/2020 Active montelukast (SINGULAIR) 10 MG tablet Take 10 mg by mouth Daily. 02/14/2020 Active betamethasone, augmented, (DIPROLENE) 0.05 % cream 03/11/2020 Active rosuvastatin (CRESTOR) 20 MG tablet Take 20 mg by mouth Daily. 03/01/2020 Active levETIRAcetam (KEPPRA) 500 MG tablet Take 500 mg by mouth 2 (Two) Times a Day. Active B Complex Vitamins (VITAMIN B COMPLEX PO) Take by mouth. 1 a day Active vitamin D3 125 MCG (5000 UT) capsule capsule Take 5,000 Units by mouth Daily. Active Probiotic Product (PROBIOTIC DAILY PO) Take by mouth. 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 03/18/2020 DDD (degenerative disc disease), cervical 2020 Cervical spinal stenosis 03/18/2020 Non-insulin dependent type 2 diabetes mellitus 0 03/18/2020 Abnormal stress test 02/28/2016 Family History Medical History Relation Name Comments Heart disease Father Relation Name Status Comments Father Social History Tobacco Use Types Packs/Day Years Used Date Smoking Tobacco: Never Smokeless Tobacco: Never Alcohol Use Standard Drinks/Week Comments No 0 (1 standard drink = 0.6 oz pur e alcohol) PHQ-2 Answer Date Recorded Retired Total Score 0 05/25/2020 Abuse Screen Answer Date Recorded Unsafe at Home or Work/School Not on file Feels Threatened by Someone? Not on file 10/2022 Does Anyone Keep You from Co ntacting Others or Doint Things Outside the Home? Not on file 11/27/2022 Physical Sign of Abuse Present Not on file 1 Housing Stability Answer Date Recorded Current Living Arrangements Not on file 10/2022 Potentially Unsafe Housing Conditions Not on rebecca e 11/27/2022 Family and Community Support Answer Kushal e Recorded Help with Day-to-Day Activities Not on file 11/27/2022 Lonely or Isolated Not on file 11/27/2022 Employment Answer Date Recorded Do you want help finding or keeping work or a angelique b? Not on file 11/27/2022 Disabilities Answer Date Recorded Concentrating, Remembering, or Making Decisions Difficulty Not on file 11/27/2022 Doing Errands Independently Difficulty Not on fi le 11/27/2022 Education Answer Date Recorded Help with school or training? Not on file Preferred Language Not on file 11/27/2022 Sex and Gender Information Value Date Recorded Sex Assigned at Not on file Legal Sex Male 11:32 AM EDT Gender Identity Not on file Sexual Orientation Not on file Last Filed Vital Signs Vital Sign Reading Time Taken Comments Blood Pressure 136/70 06/23/2020 9:33 AM EDT Pulse 60 06/23/2020 9:33 AM EDT Temperature 35.3 C (95.6 F) 06/23/2020 9:33 AM EDT Respiratory Rate 18 06/23/2020 9:33 AM EDT Oxygen Saturation 100% 06/23/2020 9:33 AM EDT Inhaled Oxygen Concentration - - Weight 95.6 kg (210 lb 12.8 oz) 06/23/2020 9:33 AM EDT Height 180.3 cm (5' 11 ) 06/23/2020 9:33 AM EDT Body Mass Index 29.4 06/23/2020 9:33 AM EDT Plan of Treatment Health Maintenance Due Date Last Done Comments TDAP/TD VACCINES (1 - Tdap) 12/13/1971 COLOGUARD 1997 COLON CANCER SCREENING 5 YEA R SIGMO[address] COLONOGRAPHY 1997 FECAL OCCULT BLOOD TEST 1997 FIT Testing (1 year) 1997 Pneumococcal Vaccine 50+ (1 of 1 - PCV) 2002 ZOSTER VACCINE (1 of 2) 2002 AAA SCREEN ONCE 2017 ANNUAL PHYSICAL 02/09/2020 HEPATITIS C SCREENING 02/09/2020 COVID-19 Vaccine ( season) 10/21/202302/2020, 04/22/2020 INFLUENZA VACCINE 11/19/2024 COLONOSCOPY 10/18/2025 10/19/2015 COLORECTAL CANCER SCREENING 10/18/2025 HEMOGLOBIN A1C Discontinued 02/28/2016 Procedures Procedure Name Priority Date/Time Associated Diagnosis Comments HEMOGLOBIN A1C STAT 02/28/2016 8:37 AM EST Abnormal stress test Type 2 diabetes mellitus with other specified complication Essential hypertension Dyslipidemia from Last 3 Months or Most Recently Relevant to Health Maintenance Results * (ABNORMAL) Hemoglobin A1c (02/28/2016 8:37 AM EST) Hemoglobin A1C 5.90(H) 4.80 - 5.60 % 02/28/2016 9:38 AM EST [facility] Blood Line / Unknown 02/28/2016 8: 37 AM EST 02/28/2016 8:46 AM EST Narrative [facility] - 02/28/2016 9:38 AM EST The [place] [employer] recommends maintenance of Hemoglobin A1C at 7.0% or lower. Goals for Hemoglobin A1C reduction may need to be modified if hypoglycemia is a problem. Jennifer Roger PA-C LAB BLOOD ORDERABLES Final Result [facility]
[address] [place] [address], from Last 3 Months or Most Recently Relevant to Health Maintenance Insurance MEDICARE A & [place] [address] [place] [address] [employer]IONS [place] [id number] Advance Directives * Full Code (Latest Code Status on File) Date Activated Date Inactivated Comments 02/28/2016 12:29 PM 02/28/2016 5:33 PM Care Teams Workforce Management Consultant Relationship Specialty Start Date End Date David Hubbard MD [address] [facility] [address] [place] [id number] PCP - General 10/19/14
[2024-09-20 10:04] LABS: Hematocrit 37.9 % (42.0-52.0); Hemoglobin 13.2 g/dL (14.1-18.0); Immature Granulocytes % 0.3 %; Mean Corpuscular HGB Conc 34.8 g/dL (31.8-35.4); Mean Corpuscular Hemoglobin 31.8 pg (27.0-31.2); Mean Corpuscular Volume 91.3 fl (80-94); Nucleated Red Blood Cells % 0 %; Platelet Count 152 K/mm3 (142-424); Red Blood Count 4.15 M/mm3 (4.60-6.20); Red Cell Distribution Width-SD 42.3 fL; White Blood Count 6.9 K/mm3 (4.8-10.8)
[2024-09-20] MEDS: ACETAMINOPHEN 500MG TAB 1000 MG PO (10:07)
[2024-09-20 10:16] LABS: Alanine Aminotransferase 19 U/L (12-78); Albumin Level 4.4 g/dl (3.5-5.0); Albumin/Globulin Ratio 1.3 (1.1-1.8); Alkaline Phosphatase 101 U/L (38-126); Anion Gap 10.8 mEq/L (5-15); Aspartate Amino Transferase 37 U/L (17-59); Bilirubin,Total 0.9 mg/dl (0.2-1.3); Blood Urea Nitrogen 8 mg/dl (9-20); Calcium 9.7 mg/dl (8.4-10.2); Carbon Dioxide 28 mmol/L (22.0-30.0); Chloride 104 mmol/L (98-107); Creatinine Clearance Estimated 78 mL/min (50-200); Creatinine,Serum 0.70 mg/dl (0.66-1.25); Estimated Glomerular Filt Rate 111 ml/min (>60); GFR (African American) 135 ML/MIN (>60); Globulin 3.3 g/dL (1.3-3.2); Glucose 103 mg/dl (74-100); Potassium 3.8 mmoL/L (3.5-5.1); Sodium 139 mmol/L (136-145); Total Protein,Serum 7.7 g/dl (6.3-8.2)
[2024-09-20 10:21] LABS: C-Reactive Protein 4.7 mg/L (0-4)
[2024-09-20] MEDS: SODIUM CHLORIDE 0.9% 10ML SYR (RAD ONLY) 10 ML IV (10:54)
[2024-09-20] MEDS: IOPAMIDOL-370 (76%);100ML BOTTLE 150 ML IV (10:54)
[2024-09-20 11:21] LABS: Hepatitis C Ab Qual. W/ RFX NEGATIVE (Negative)
[2024-09-20 11:22] LABS: Procalcitonin 0.040 ng/mL (0.0-2.0)
--- NOTE | 2024-09-20 11:50 | PC.NURSE ---
pt and family updated on plan of care and that we are waiting for his rad reports. no needs voiced at this time. call meyers in reach.
== END 2024-09-20 12:48 | disposition home or self-care (01) ==
PROVIDERS: Emergency Provider Student in an Organized Health Care Education/Training Program; PCP Family Medicine
DX: L03.90 Cellulitis, unspecified (principal); K11.21 Acute sialoadenitis; M94.8X9 Other specified disorders of cartilage, unspecified sites; G47.33 Obstructive sleep apnea (adult) (pediatric); G40.909 Epilepsy, unspecified, not intractable, without status epilepticus
CPT/HCPCS: 70450; 70481; 70491; 80053; 84145; 85025; 85651; 86140; 86803; 87040; 87389; 99284; Q9967

== ENCOUNTER 2024-11-18 07:38 | Outpatient (RCR) | payer MEDICARE, SELFPAY | END 2024-11-18 23:59 | disposition home or self-care (01) | LOC: OT 07:38 | PROVIDERS: PCP Family Medicine; Visit Provider Physician Assistant | DX: S42.201A Unspecified fracture of upper end of right humerus, initial encounter for closed fracture (principal) | CPT/HCPCS: 97166 ==

== ENCOUNTER 2024-12-17 08:00 | Outpatient (RCR) | payer MEDICARE, SELFPAY | END 2024-12-17 23:59 | disposition home or self-care (01) | LOC: OT 08:00 | PROVIDERS: Visit Provider Physician Assistant | DX: S42.201A Unspecified fracture of upper end of right humerus, initial encounter for closed fracture (principal); X58.XXXA Exposure to other specified factors, initial encounter | CPT/HCPCS: 97014; 97032; 97110; 97140; 97168; 97530; G0283 ==

== ENCOUNTER 2025-01-14 08:00 | Outpatient (RCR) | payer MEDICARE, SELFPAY | END 2025-01-14 23:59 | disposition home or self-care (01) | LOC: OT 08:00 | PROVIDERS: Visit Provider Physician Assistant | DX: S42.201A Unspecified fracture of upper end of right humerus, initial encounter for closed fracture (principal) | CPT/HCPCS: 97014; 97032; 97110; 97140; 97530; G0283 ==

== ENCOUNTER 2025-02-04 08:00 | Outpatient (RCR) | payer MEDICARE, SELFPAY | END 2025-02-04 23:59 | disposition home or self-care (01) | LOC: OT 08:00 | PROVIDERS: Visit Provider Physician Assistant | DX: S42.201A Unspecified fracture of upper end of right humerus, initial encounter for closed fracture (principal) | CPT/HCPCS: 97014; 97032; 97110; 97140; 97530; G0283 ==